=== PATIENT | female | born 1955 | race Hispanic/Latino ===

== ENCOUNTER 2017-03-19 08:08 | Inpatient (IN) | payer MEDICARE, MEDICAID ==
--- NOTE | 2017-03-19 08:48 | RAD ---
AP VIEW OF THE CHEST: INDICATION: Chest pain. COMPARISON: Prior exam dated 08/24/12. FINDINGS: There is mild cardiomegaly. Pulmonary vasculature is mildly prominent. The lungs are clear. No pl eural effusion or pneumothorax is evident. No acute osseous abnormality is evident. IMPRESSION: Cardiomegaly with mild pulmonary vascular congestion. POS: [facility]
[2017-03-19 08:57] LABS: #Basophils 0.1 thou/uL (0.0-0.2); #Eosinphils 0.4 thou/uL (0.0-0.7); #Lymphocytes 1.9 thou/uL (1.20-3.40); #Monocytes 0.5 thou/uL (0.11-0.59); #Neutrophils 3.8 thou/uL (1.40-6.50); %Basophils 0.8 % (0.0-1.0); %Eosinophils 5.9 % (0.0-10.0); %Lymphocytes 29.2 % (21.0-51.0); %Monocytes 6.9 % (0.0-10.0); Hematocrit 42.6 % (36.0-47.0); Mean Platelet Volume 8.7 fL (7.4-10.4); Red Blood Cell (RBC) Count 4.76 mill/uL (4.20-5.40); White Blood Cell (WBC) Count 6.6 thou/uL (4.8-10.8)
[2017-03-19 09:21] LABS: ALT (SGPT) 57 U/L (8-55); AST (SGOT) 62 U/L (5-34); Alkaline Phosphatase 73 U/L (40-150); Anion Gap 13 mmol/L (10-20); BUN (Urea Nitrogen) 22 mg/dL (9.8-20.1); Bilirubin, Total 0.4 mg/dL (0.2-1.2); CK (CPK) 1623 U/L (29-168); Calc. Creatinine Clearance 0 mL/min (70-130); Calcium 9.4 mg/dL (7.8-10.44); Carbon Dioxide 28 mmol/L (23-31); Chloride 106 mmol/L (98-107); Estimated GFR-MDRD Greater than 90; Globulin 3.4 g/dL (2.4-3.5); Lipase 14 U/L (8-78); Protein, Total 7.3 g/dL (6.0-8.3)
[2017-03-19 09:24] LABS: Troponin I Less than 0.010 ng/mL (< 0.028)
[2017-03-19 09:37] LABS: PTT 28.3 SEC (22.9-36.1); Prothrombin Time 13.7 SEC (12.0-14.7)
[2017-03-19] MEDS ORDERED: Ondansetron HCl/PF 4 MG/2 ML Vial ONE (12:06)
[2017-03-19] MEDS ORDERED: Acetaminophen 500 MG TAB ONE (12:06)
[2017-03-19 18:49] LABS: Bilirubin Negative (Negative); Blood, Urine Negative (Negative); Glucose, Urine (Dipstick) Negative (Negative); Ketone, Urine Negative (Negative); Nitrite Negative (Negative); Protein, Urine (Dipstick) Negative (Neg-Trace)
[2017-03-19 19:22] LABS: Troponin I Less than 0.010 ng/mL (< 0.028)
[2017-03-19] MEDS ORDERED: Ondansetron HCl/PF 4 MG/2 ML Vial IVP PRN (21:04)
[2017-03-19] MEDS ORDERED: Ondansetron ODT 4 MG TAB SL PRN (21:04)
[2017-03-19] MEDS ORDERED: Nitroglycerin 0.4 MG TAB (25 Tab Bottle) PO PRN (21:07)
[2017-03-19] MEDS ORDERED: Baclofen 10 MG TAB PO SCH (21:15)
[2017-03-19] MEDS ORDERED: Aspirin 325 MG TAB PO SCH (21:15)
[2017-03-19] MEDS ORDERED: Carvedilol 3.125 MG TAB PO SCH (21:15)
[2017-03-19] MEDS ORDERED: tiZANidine HCl 4 MG TAB PO SCH (21:30)
[2017-03-19 22:16] LABS: Troponin I Less than 0.010 ng/mL (< 0.028)
[2017-03-19 22:18] LABS: Critical Call CKMBM RESULT DECREASING
[2017-03-19] MEDS: Sodium Chloride 0.9% 1,000 ML IV SCH (22:56)
[2017-03-19 23:56] VITALS: BMI 43.3
[2017-03-20 00:01] LABS: Phosphorus 3.3 mg/dL (2.3-4.7)
[2017-03-20 01:11] LABS: Troponin I 0.012 ng/mL (< 0.028)
[2017-03-20] MEDS: Ondansetron ODT 4 MG TAB PO PRN ×3 (01:33→17:35)
[2017-03-20] MEDS: Ketorolac Tromethamine 10 MG TAB PO SCH ×4 (01:33→17:32)
[2017-03-20] MEDS: Acetaminophen 325 MG TAB PO PRN ×2 (04:43→10:12)
[2017-03-20 04:44] LABS: ALT (SGPT) 51 U/L (8-55); AST (SGOT) 59 U/L (5-34); Alkaline Phosphatase 58 U/L (40-150); Anion Gap 14 mmol/L (10-20); BUN (Urea Nitrogen) 13 mg/dL (9.8-20.1); Bilirubin, Total 0.4 mg/dL (0.2-1.2); CK (CPK) 1516 U/L (29-168); Calc. Creatinine Clearance 143 mL/min (70-130); Calcium 8.7 mg/dL (7.8-10.44); Carbon Dioxide 27 mmol/L (23-31); Chloride 104 mmol/L (98-107); Cholesterol 145 mg/dl (< 200 Desired); Estimated GFR-MDRD 86; Globulin 3.3 g/dL (2.4-3.5); LDL Cholesterol, Calculated 67 mg/dL; Protein, Total 6.9 g/dL (6.0-8.3)
--- NOTE | 2017-03-20 05:51 | HP-2 ---
CODE STATUS: FULL. PRIMARY CARE PHYSICIAN: Dr. Quevedo ATTENDING: Dr. Brenda Mancilla RESIDENT: João Thakkar M.D. HISTORIAN: Patient. CHIEF COMPLAINT: Chest pain. HISTORY OF PRESENT ILLNESS: Chantell Keith is a 62-year-old female with past medical history of hyper tension who presents with chest pain that started last night while she was asleep. The pain woke he r up from her sleep. The pain is located in the upper chest and around the left shoulder. There is no radiation to her neck or the left arm. The pain is described as sharp and was rated as 9/10 ini tially. The pain has been intermittent ever since. She states initially that nothing improves the pain or worsens the pain, she stated that initially, but later on the interview when asked specifica lly, she said the pain is worse with exertion. She states that when the pain woke her up yesterday night she had some dyspnea that she thought was due to her asthma. The patient denied orthopnea, PN D. Denies edema. She did that she had some nausea with the chest pain, but no diaphoresis. She al so states that she has had a cough for the last 2 weeks that has improved with Mucinex. PAST MEDICAL HISTORY: 1. Asthma. 2. Anxiety. 3. Hypertension. 4. Gastroesophageal reflux disease. 5. Overactive bladder. 6. Migraine. PAST SURGICAL HISTORY: 1. Ankle surgery. 2. Abdominal hernia surgery. 3. Cholecystectomy. ALLERGIES: SULFA DRUGS. MEDICATIONS: 1. Toradol 10 mg 2 tabs p.r.n. 2. Sertraline 100 mg p.o. a.m. 3. Aspirin 81 mg p.o. daily. 4. Pantoprazole 40 mg p.o. daily. 5. Tizanidine 4 mg p.o. at bedtime. 6. Myrbetriq 25 mg p.o. in the morning. 7. Baclofen 10 mg p.o. b.i.d. 8. Enalapril 20 mg p.o. b.i.d. 9. Butalbital/acetaminophen/caffeine 50-325-40 mg p.o. q.8 h. p.r.n. FAMILY HISTORY: Sister has a pacemaker. Father has hypertension, diabetes. Sisters have diabetes and hypertension as well. SOCIAL HISTORY: Denies alcohol, tobacco use or drug use. REVIEW OF SYSTEMS: GENERAL: Denies fevers, chills, weight, appetite, sleep change, night sweats, or fatigue. Positive for headache. EYES: Denies vision changes or eye pain. ENT: Denies sore throat, rhinorrhea and nasal congestion. RESPIRATORY: Positive for cough for the last 2 weeks. Denies congestion or exercise intolerance. Positive for shortness of breath. CARDIOVASCULAR: Positive for chest pain, palpitations. Denies edema, PND, orthopnea. GASTROINTESTINAL: Positive for nausea. Denies vomiting, diarrhea, constipation, abdominal pain, GI bleeding. : Positive for polyuria due to overactive bladder. Denies incontinence, dysuria, discharge. SKIN: Denies rashes, lesions, jaundice, or itching. MUSCULOSKELETAL: Denies pain, tenderness, stiffness, swelling or arthritis. NEURO: Denies weakness, numbness, syncope, seizures. PSYCHIATRIC: Positive for anxiety that is controlled with home medications. Denies depression. PHYSICAL EXAMINATION: VITAL SIGNS: Blood pressure 121/58, pulse 66, respiratory rate 18, T-max 98.1, pulse ox 95 on 2 lit ers. Current weight 101 kilograms. GENERAL: The patient is alert and oriented x4, no acute distress, obese, and appropriately interact josef. EYES: Pupils equal, round, react to light and accommodation. Extraocular muscles intact. Conjunct kiera within normal limits. ENT: Tympanic membranes are pearly pandya without bulging or erythema. Nasal mucosa within normal li mits and oropharynx within normal limits. NECK: Supple, without lymphadenopathy or thyromegaly. No JVD present. CARDIOVASCULAR: Regular rate and rhythm. No murmurs or gallops. Pulses equal bilaterally. RESPIRATORY: Normal effort without retractions. Lungs are clear to auscultation bilaterally, but l emilee sounds are distant possibly due to body habitus. SKIN: Warm and dry without cyanosis or lesions. ABDOMEN: Soft, nontender. Bowel sounds x4. No masses or distention. EXTREMITIES: No clubbing, cyanosis or edema. MUSCULOSKELETAL: Structure and tone within normal limit. Full range of motion. NEUROLOGICAL: No focal deficits. Sensation within normal limits. PSYCHIATRIC: Appropriate. LABORATORY DATA: White blood cell count 6.6, hemoglobin 13.1, hematocrit 42.6, platelets 189. Sodi um 141, potassium 4.0, chloride 106, bicarbonate 28, BUN 22, creatinine 0.64, glucose 109, calcium 9 .4, total protein 7.3, albumin 3.9, total bilirubin 0.4, AST 62, ALT 57, alkaline phosphatase 73. D -dimer 0.38, INR 1.0, PT 13.7, PTT 28.3. CK 1623, CK-MB 17.2, troponin less than 0.01, lipase 14. BNP 234.7. UA was negative. EKG showed normal sinus rhythm, heart rate of [address] s egment or T-wave changes. No axis deviation. Chest x-ray showed cardiomegaly with mild pulmonary v ascular congestion. ASSESSMENT AND PLAN: Chantell Keith is a 62-year-old female with past medical history of hypertension , migraines, gastroesophageal reflux disease, anxiety, who presents with chest pain. 1. Chest pain, rule out. Admit to tele observation, heart score of 3. Echo ordered. Trend cardia c enzymes with serial EKGs. IV fluids at 120. Negative troponin's x2 so far. CK-MB is elevated li chema secondary to elevated CK. We will recheck CK in the morning. Continuous cardiac monitoring. A.m. CBC, CMP, fasting lipid panel, CK. Beta niranjan and aspirin. Hold statin due to elevated CK. Check magnesium, phosphorus and TSH. 2. Elevated BNP. Check echocardiogram. Judicious fluid hydration while monitoring status. 3. Increased CK, unknown cause. Urine not concentrated. Check urine myoglobin. We will cautiousl y fluid hydrate and recheck. 4. Elevated fluid enzymes. We will obtain clinic records can likely be worked up outpatient. 5. CODE STATUS: Full. 6. Activity: Ad bea with fall precautions. 7. Diet; heart healthy. 8. Hypertension. Continue home medications. 9. Anxiety. Continue home meds negative. 10. Gastroesophageal reflux disease. Continue home medications. DISPOSITION/LENGTH OF HOSPITAL STAY: 2 days. Symptomatic medication will be provided. History and physical exam as well as management discussed with Dr. Brenda Mancilla.
[2017-03-20] MEDS ORDERED: Albuterol Sulfate 2.5 mg/3 ml Neb NEB PRN (05:56)
[2017-03-20] MEDS ORDERED: Albuterol Sulfate 2.5 mg/3 ml Neb NEB SCH (06:00)
[2017-03-20 06:20] LABS: Troponin I Less than 0.010 ng/mL (< 0.028)
[2017-03-20 06:41] LABS: #Eosinphils 0.4 thou/uL (0.0-0.7); #Lymphocytes 1.9 thou/uL (1.20-3.40); #Monocytes 0.6 thou/uL (0.11-0.59); #Neutrophils 4.2 thou/uL (1.40-6.50); %Basophils 0.1 % (0.0-1.0); %Eosinophils 5.3 % (0.0-10.0); %Lymphocytes 26.5 % (21.0-51.0); %Monocytes 7.9 % (0.0-10.0); Hematocrit 40.1 % (36.0-47.0); Mean Platelet Volume 8.9 fL (7.4-10.4); Red Blood Cell (RBC) Count 4.39 mill/uL (4.20-5.40)
[2017-03-20] MEDS ORDERED: Carvedilol 3.125 MG TAB PO SCH (09:00)
--- NOTE | 2017-03-20 09:09 | RAD ---
CHEST 1 VIEW: Date: 03/20/17 HISTORY: Dyspnea. COMPARISON: 03/19/17. FINDINGS: Cardiac silhouette remains magnified by projection and upper limits of normal in size. Pulmonary vas culature is less engorged than on the previous exam. Mediastinum is midline. No lobar consolidation or pneumothorax apparent. turf keeper leads overlie the chest. IMPRESSION: Interval decrease in degree of pulmonary vascular congestion. POS: OFF
--- NOTE | 2017-03-20 09:17 | PDOC.FM ---
- Subjective Subjective: Pt reports she has a little SOB, but that it is improved. Denies CP, NVD. Some constipation which she states is a chronic issue and her last BM was yesterday. She was given Coreg last night and has a history of asthma. Her pressures have dropped since recieving that medication and have remained low. She also reported increase sob after recieiving coreg which resolved with duonebs. - Objective Vital Signs & Weight: Vital Signs (12 hours) Temp Pulse Resp BP BP Pulse Ox 03/20/17 08:00 58 L 96/52 L 03/20/17 07:11 95 03/20/17 07:07 97.5 F L 61 20 82/47 L 98 03/20/17 07:06 86 16 95 03/20/17 06:00 88/50 L 03/20/17 05:32 65 20 85/43 L 96 03/20/17 04:00 99.6 F 72 18 95/57 L 94 L 03/20/17 00:30 98.3 F 67 16 03/19/17 23:48 98.3 F 67 16 133/58 L 97 Weight Weight 107.139 kg I&O: 03/19/17 03/20/17 03/21/17 06:59 06:59 06:59 Intake Total 822 Balance 822 Result Diagrams: 03/20/17 00:31 03/20/17 00:31 <Easton Marti - Last Filed: 03/20/17 09:21> - Objective Vital Signs & Weight: Vital Signs (12 hours) Temp Pulse Resp BP BP Pulse Ox 03/20/17 12:00 71 122/62 03/20/17 11:14 98.3 F 62 109/53 L 99 03/20/17 08:00 97.5 F L 58 L 16 96/52 L 03/20/17 07:11 95 03/20/17 07:07 97.5 F L 61 20 82/47 L 98 03/20/17 07:06 86 16 95 03/20/17 06:00 88/50 L 03/20/17 05:32 65 20 85/43 L 96 03/20/17 04:00 99.6 F 72 18 95/57 L 94 L 03/20/17 00:30 98.3 F 67 16 Weight Weight 107.139 kg I&O: 03/19/17 03/20/17 03/21/17 06:59 06:59 06:59 Intake Total 822 Balance 822 Result Diagrams: 03/20/17 00:31 03/20/17 00:31 <Berlin Pro - Last Filed: 03/20/17 12:26> Phys Exam - Physical Examination Constitutional: NAD HEENT: moist MMs Respiratory: no wheezing, no rales, no rhonchi, clear to auscultation bilateral Cardiovascular: RRR, no significant murmur, no rub Gastrointestinal: soft, non-tender, no distention, positive bowel sounds Musculoskeletal: no edema, pulses present Neurological: non-focal, normal sensation <Easton Marti - Last Filed: 03/20/17 09:21> Dx/Plan (1) Atypical chest pain Code(s): R07.89 - OTHER CHEST PAIN Status: Acute (2) Elevated brain natriuretic peptide (BNP) level Code(s): R79.89 - OTHER SPECIFIED ABNORMAL FINDINGS OF BLOOD CHEMISTRY Status : Acute (3) Elevated CK-MB level Code(s): R74.8 - ABNORMAL LEVELS OF OTHER SERUM ENZYMES Status: Acute (4) Elevated CK Status: Acute - Plan Plan: -troponins negative, tsh normal echo pending -ckmb elevated, but likely 2/2 elevated CK level -increasing sob with IVF alongside elevated BNP will hold IVF for now. -bp drop with use of coreg, will monitor pressures -cxr showed improved pulm vasc congestion check mag phos, elytes, replace as necessary <Easton Marti - Last Filed: 03/20/17 09:21> Attending Addendum - Attending Addendum I personally evaluated the patient and discussed the management with Dr. Marti. I agree with the History, Examination, Assessment and Plan documented above with any addition or exceptions noted below. MAGRARITO needs further work up outpatient and may need sleep aid. Chest pain is non- cardiac, likely costochondritis verses myositis. Will d/c home today after ECHO and f/u with Dr. Mosquera within 1 week of discharge. <Berlin Pro - Last Filed: 03/20/17 12:26>
[2017-03-20 09:38] LABS: Amphetamine Not Detected (NotDetected); Methadone Not Detected (NotDetected); Methamphetamine Not Detected (NotDetected)
[2017-03-20] MEDS: Baclofen 10 MG TAB PO SCH ×2 (11:12→21:08)
[2017-03-20] MEDS: Aspirin 325 MG TAB PO SCH (11:13)
[2017-03-20] MEDS: Sodium Chloride 0.9% 1,000 ML IV SCH ×2 (11:13→13:07)
[2017-03-20] MEDS: Enoxaparin Sodium 40 MG/0.4 ML SYRINGE SC SCH (11:14)
--- NOTE | 2017-03-20 15:30 | PDOC.EVN ---
Event Note - Event Note Event Note: Spoke with nurse, pt desating with walking and complains of dizziness. Pts orthostatics were negative and her oxygen saturation was 98% on 2LNC. O2 supplementation was turned off and pts saturation dropped to 88% and returned to 95% while sitting at bedside and conversing with pt. She had no signs of respiratory distress. Lungs were CTA BL. No paradoxical breathing and no retractions. She was given coreg and has a history of asthma, the previous low blood pressures and SOB are likely 2/2 medication side effect. She also complains of headache which has been extensively worked up in the outpatient setting and she has seen neurology for in the past. This is not an acute issue and she has no neurologic deficits. VBG ordered, DuonebsX1, incentive spirometry ordered and pt instructed to sit up in bed. Will re-evaluate following results of VBG.
[2017-03-20 15:56] LABS: Base Excess 4.7 mEq/L (0 (+/- 2.5)); O2 Content (venous) 7.8 VOL% (12.5-17.5); pH (venous) 7.303 (7.35-7.45)
[2017-03-20] MEDS ORDERED: Furosemide 20 MG/2 ML VIAL SLOW IVP SCH (17:30)
[2017-03-20] MEDS ORDERED: Ondansetron HCl/PF 4 MG/2 ML Vial IVP PRN ×2 (18:38→19:44)
[2017-03-20] MEDS ORDERED: Mag-Al 1200 mg/1200 mg/30 ML UDCUP PO PRN (19:44)
[2017-03-20] MEDS ORDERED: traMADol HCl 50 MG TAB PO PRN (19:44)
[2017-03-20] MEDS ORDERED: Bisacodyl 10 MG SUPP PR PRN (19:44)
[2017-03-20] MEDS ORDERED: Nitroglycerin 0.4 MG TAB (25 Tab Bottle) SL PRN (19:44)
[2017-03-20] MEDS ORDERED: Acetaminophen 325 MG TAB PO PRN (19:44)
[2017-03-20] MEDS ORDERED: Bisacodyl 5 MG TAB PO PRN (19:44)
[2017-03-20] MEDS ORDERED: diphenhydrAMINE HCl 25 MG CAP PO PRN (19:44)
[2017-03-20] MEDS ORDERED: Temazepam 15 MG CAP PO PRN (19:44)
[2017-03-20] MEDS ORDERED: Ondansetron HCl/PF 4 MG/2 ML Vial IVP SCH (19:45)
[2017-03-20] MEDS: Fioricet 325/50/40 mg Tablet PO PRN (19:56)
[2017-03-20] MEDS: tiZANidine HCl 4 MG TAB PO SCH (21:08)
[2017-03-21] MEDS: Ketorolac Tromethamine 10 MG TAB PO SCH ×4 (02:41→21:31)
[2017-03-21] MEDS ORDERED: Ondansetron HCl/PF 4 MG/2 ML Vial IVP SCH (03:45)
[2017-03-21 04:27] LABS: #Eosinphils 0.1 thou/uL (0.0-0.7); #Lymphocytes 1.4 thou/uL (1.20-3.40); #Monocytes 0.4 thou/uL (0.11-0.59); #Neutrophils 4.9 thou/uL (1.40-6.50); %Basophils 0.1 % (0.0-1.0); %Eosinophils 0.9 % (0.0-10.0); %Monocytes 5.8 % (0.0-10.0); Hematocrit 38.3 % (36.0-47.0); Mean Platelet Volume 8.8 fL (7.4-10.4); Red Blood Cell (RBC) Count 4.25 mill/uL (4.20-5.40); White Blood Cell (WBC) Count 6.8 thou/uL (4.8-10.8)
--- NOTE | 2017-03-21 07:13 | PDOC.FM ---
- Subjective Subjective: Patient reports several episodes of vomiting since yesterday afternoon. She denies abdominal pain or diarrhea, but has been having problems with constipation. She is currently on 2 L O2, but denies any SOB. She has not had any episodes of chest pain since admission. - Objective Vital Signs & Weight: Vital Signs (12 hours) Temp Pulse Resp BP BP Pulse Ox 03/21/17 03:35 99.8 F H 80 14 134/64 94 L 03/20/17 23:33 99.4 F 61 16 106/56 L 95 03/20/17 23:30 83 L 03/20/17 21:30 99.4 F 61 16 03/20/17 19:50 99.5 F 79 14 141/66 H 92 L Weight Weight 110.132 kg I&O: 03/20/17 03/21/17 03/22/17 06:59 06:59 06:59 Intake Total 822 480 Output Total 825 Balance 822 -345 Result Diagrams: 03/21/17 03:52 03/20/17 00:31 Phys Exam - Physical Examination Constitutional: NAD HEENT: moist MMs Respiratory: no wheezing, no rales, no rhonchi, clear to auscultation bilateral Cardiovascular: RRR, no significant murmur, no rub Gastrointestinal: soft, non-tender, no distention, positive bowel sounds Musculoskeletal: no edema, pulses present Neurological: non-focal, moves all 4 limbs Psychiatric: normal affect, A&O x 3 Dx/Plan (1) Acute respiratory failure with hypoxia Code(s): J96.01 - ACUTE RESPIRATORY FAILURE WITH HYPOXIA Status: Acute Plan: Patient is not on oxygen at home, but does have a history of asthma. Just prior to discharge she was walking and was found to have O2 of 86% and then later of 83%. Her O2 sats have improved with oxygen. She denies any SOB today. VBG showed pH 7.3 pCO2 67.7 pO2 26.5 HCO3 33 CXR showed pulmonary vascular congestion that has improved Echo showed EF 55-60%, technically difficult exam with limitations - diastolic function not well assessed. -hold IVF -s/p one dose of lasix -Will continue to monitor -duonebs and albuterol prn -Patient would benefit from outpatient sleep study to evaluate for MARGARITO. (2) Atypical chest pain Code(s): R07.89 - OTHER CHEST PAIN Status: Acute Plan: Patient had an episode of chest pain prior to admission, but has not had any further episodes. Trop negative x3 CK-MB elevated, but this is likely 2/2 CK elevation EKG with no ischemic changes -Tele monitoring (3) Elevated CK Status: Acute Plan: CK elevated, patient has family history of muscular dystrophy -hold statin -Check ADAMS -Check urine myoglobin (4) Elevated CK-MB level Code(s): R74.8 - ABNORMAL LEVELS OF OTHER SERUM ENZYMES Status: Acute Plan: likely 2/2 elevated CK Trops negative x3 (5) Elevated brain natriuretic peptide (BNP) level Code(s): R79.89 - OTHER SPECIFIED ABNORMAL FINDINGS OF BLOOD CHEMISTRY Status : Acute Plan: BNP 309 Echo was technically difficult, but EF shown to be 55-60% Patient could have element of diastolic dysfunction, but not assessed fully on echo s/p 1 dose of lasix CXR showed pulmonary vascular congestion -outpatient follow-up
[2017-03-21] MEDS ORDERED: Ondansetron ODT 8 MG TAB SL PRN (07:25)
[2017-03-21] MEDS ORDERED: Polyethylene Glycol 3350 17 GM Packet PO PRN (07:25)
[2017-03-21] MEDS: Promethazine HCl 25 MG in Sodium Chloride 0.9% 100 ML IVPB SCH ×3 (11:45→22:26)
[2017-03-21] MEDS: Promethazine HCl 25 MG/ML VIAL IM SCH ×3 (11:46→22:26)
[2017-03-21] MEDS: Enoxaparin Sodium 40 MG/0.4 ML SYRINGE SC SCH (15:20)
[2017-03-21] MEDS: Fioricet 325/50/40 mg Tablet PO PRN (15:42)
[2017-03-21 16:10] LABS: ALT (SGPT) 46 U/L (8-55); AST (SGOT) 45 U/L (5-34); Alkaline Phosphatase 55 U/L (40-150); Anion Gap 11 mmol/L (10-20); BUN (Urea Nitrogen) 14 mg/dL (9.8-20.1); Bilirubin, Total 0.4 mg/dL (0.2-1.2); CK (CPK) 1003 U/L (29-168); Calc. Creatinine Clearance 156 mL/min (70-130); Carbon Dioxide 34 mmol/L (23-31); Chloride 102 mmol/L (98-107); Estimated GFR-MDRD Greater than 90; Globulin 3.3 g/dL (2.4-3.5); Protein, Total 6.9 g/dL (6.0-8.3)
[2017-03-21] MEDS: Aspirin 325 MG TAB PO SCH (17:53)
[2017-03-21] MEDS: Baclofen 10 MG TAB PO SCH ×2 (17:53→21:31)
[2017-03-21] MEDS: tiZANidine HCl 4 MG TAB PO SCH (21:31)
--- NOTE | 2017-03-21 23:43 | ADD-PRG ---
ADDENDUM DATE OF SERVICE: 03/21/2017 Please see the report from Dr. Claire Ortiz for which I concur. The patient was seen and evaluated, examined and discussed with the residents. 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 Echo was fairly nonrema rkable, and definitely on discharged, we will need to get her set up for home sleep study as this is likely one of her biggest issues.
[2017-03-22] MEDS: Ketorolac Tromethamine 10 MG TAB PO SCH ×5 (00:41→16:55)
[2017-03-22] MEDS: Promethazine HCl 25 MG/ML VIAL IM SCH (05:32)
[2017-03-22 06:17] LABS: Anion Gap 10 mmol/L (10-20); BUN (Urea Nitrogen) 16 mg/dL (9.8-20.1); Calc. Creatinine Clearance 143 mL/min (70-130); Calcium 8.8 mg/dL (7.8-10.44); Carbon Dioxide 33 mmol/L (23-31); Chloride 103 mmol/L (98-107); Estimated GFR-MDRD 86
[2017-03-22] MEDS: Promethazine HCl 25 MG in Sodium Chloride 0.9% 100 ML IVPB SCH (06:35)
[2017-03-22] MEDS ORDERED: Promethazine HCl 25 MG/ML VIAL IM PRN (06:37)
[2017-03-22] MEDS ORDERED: Promethazine HCl 25 MG in Sodium Chloride 0.9% 100 ML IVPB PRN (06:38)
--- NOTE | 2017-03-22 07:36 | PDOC.FM ---
- Subjective Subjective: Patient reports that her nausea has improved significantly. She is still having the persistent migraine. She also reports some new muscle twitching in her upper body that she has never had before as well as some muscle pain in her left shoulder. She is still constipated and has not had a BM since . - Objective MAR Reviewed: Yes Vital Signs & Weight: Vital Signs (12 hours) Temp Pulse Resp BP BP Pulse Ox 03/22/17 03:59 98.4 F 54 L 16 118/65 97 03/21/17 23:15 98.9 F 65 16 137/80 93 L 03/21/17 21:10 99.6 F 66 12 03/21/17 19:47 99.6 F 66 12 131/84 94 L Weight Weight 107.229 kg I&O: 03/21/17 03/22/17 03/23/17 06:59 06:59 06:59 Intake Total 190 Output Total 125 Balance 65 Result Diagrams: 03/21/17 03:52 03/22/17 05:54 Phys Exam - Physical Examination Constitutional: NAD HEENT: moist MMs Respiratory: no wheezing, no rales, no rhonchi, clear to auscultation bilateral Cardiovascular: RRR, no significant murmur, no rub, gallop Gastrointestinal: soft, non-tender, no distention, positive bowel sounds Musculoskeletal: no edema, pulses present Neurological: non-focal, moves all 4 limbs Psychiatric: normal affect, A&O x 3 Skin: no rash Dx/Plan (1) Acute respiratory failure with hypoxia Code(s): J96.01 - ACUTE RESPIRATORY FAILURE WITH HYPOXIA Status: Acute Plan: Patient is not on oxygen at home, but does have a history of asthma. Just prior to discharge she was walking and was found to have O2 of 86% and then later of 83%. Her O2 sats have improved with oxygen. She denies any SOB today. VBG showed pH 7.3 pCO2 67.7 pO2 26.5 HCO3 33 CXR showed pulmonary vascular congestion that has improved Echo showed EF 55-60%, technically difficult exam with limitations - diastolic function not well assessed. -hold IVF -s/p one dose of lasix -Will continue to monitor -duonebs and albuterol prn -Patient would benefit from outpatient sleep study to evaluate for MARGARITO. -Patient will require home oxygen at least until she is able to get a sleep study done as she desats to the 80s on room air (2) Atypical chest pain Code(s): R07.89 - OTHER CHEST PAIN Status: Acute Plan: Patient had an episode of chest pain prior to admission, but has not had any further episodes. Trop negative x3 CK-MB elevated, but this is likely 2/2 CK elevation EKG with no ischemic changes -Tele monitoring (3) Rhabdomyolysis Code(s): M62.82 - RHABDOMYOLYSIS Status: Acute Qualifiers: Rhabdomyolysis type: non-traumatic Qualified Code(s): M62.82 - Rhabdomyolysis Plan: Patient had elevated CK likely 2/2 rhabdo, downtrending s/p fluid resuscitation -hold statin -treat nausea with zofran and phenergan (4) Elevated CK Status: Acute Plan: CK elevated, patient has family history of muscular dystrophy, this is likely 2/ 2 rhabdo CK is downtrending s/p some fluids - as patient likely has a diastolic CHF component, do not want to fluid overload her. She is now tolerating PO better. ADAMS negative -hold statin -Check urine myoglobin (5) Elevated CK-MB level Code(s): R74.8 - ABNORMAL LEVELS OF OTHER SERUM ENZYMES Status: Acute Plan: likely 2/2 elevated CK Trops negative x3 (6) Elevated brain natriuretic peptide (BNP) level Code(s): R79.89 - OTHER SPECIFIED ABNORMAL FINDINGS OF BLOOD CHEMISTRY Status : Acute Plan: BNP 309 Echo was technically difficult, but EF shown to be 55-60% Patient could have element of diastolic dysfunction, but not assessed fully on echo s/p 1 dose of lasix CXR showed pulmonary vascular congestion -outpatient follow-up (7) Migraine Code(s): G43.909 - MIGRAINE, UNSP, NOT INTRACTABLE, WITHOUT STATUS MIGRAINOSUS Status: Acute Qualifiers: Migraine type: unspecified Status migrainosus presence: without status migrainosus Intractability: intractable Qualified Code(s): G43.919 - Migraine, unspecified, intractable, without status migrainosus Plan: Patient has had a migraine since Thursday - s/p fioricet with no relief -Will try toradol and reglan today
[2017-03-22] MEDS ORDERED: Docusate 100 MG CAP PO SCH (09:00)
[2017-03-22] MEDS ORDERED: Metoclopramide HCl 10 MG TAB PO SCH (09:00)
[2017-03-22] MEDS ORDERED: Polyethylene Glycol 3350 17 GM Packet PO SCH (09:00)
[2017-03-22] MEDS ORDERED: Prochlorperazine Maleate 5 MG TAB PO PRN (09:27)
[2017-03-22] MEDS: Baclofen 10 MG TAB PO SCH (12:13)
[2017-03-22] MEDS: Aspirin 325 MG TAB PO SCH (12:13)
[2017-03-22] MEDS: Enoxaparin Sodium 40 MG/0.4 ML SYRINGE SC SCH (12:14)
[2017-03-22] MEDS: Ondansetron ODT 4 MG TAB PO PRN (12:24)
[2017-03-22 15:38] VITALS: BP 153/90; TEMP 98.4
--- NOTE | 2017-03-22 17:01 | ADD-PRG ---
ADDENDUM: 03/22/2017 Please see the note from Dr. Ortiz for which I concur. SUBJECTIVE: The patient is having less nausea and vomiting, started to develop a \\\\"twitching\\\\" in upper extremities. Really, there was none of that on exam in until she started talking about it an d then seemed to be voluntarily twitching, basically abducting her deltoids and arms in the room, an d from that point on to show how she is twitching. She is on Phenergan and Reglan and certainly thi s could be causing some kind of dystonic reaction. There seems to be a lot of somatization on her, a lot of just generalized complaints including headache, nausea, chronic migraines, chronic GI issue s, nauseous yesterday, but not vomiting. Oxygen levels have been borderline. She has chronically e levated CK, but that seems to be related more to issues with likely muscular dystrophy type issues, her MB ratio is certainly extremely large, troponin was okay. This sounds like she is possibly a li ttle bit of Pickwickian type issue where she has some chronic low oxygen from restrictive lung disea se, from obesity and body habitus which causes a little bit of volume overload on her, but is improv ing with the Lasix and should be able to be discharged home on her current medicines including Lasix , include a proton pump inhibitor and will make sure we get off of Phenergan and Reglan in case this is the dystonic reaction. At home, will definitely need outpatient sleep study as likely going to need BiPAP or CPAP at night to help her and definitely need to do anything and everything she can lo se weight, but should be able to be discharged today.
--- NOTE | 2017-03-23 14:15 | DIS-2 ---
DATE OF ADMISSION: 03/21/2017 DATE OF DISCHARGE: 03/22/2017 ADMITTING RESIDENT: João Thakkar M.D. DISCHARGE RESIDENT: Claire Ortiz M.D. ADMITTING ATTENDING: Brenda Mancilla M.D. DISCHARGE ATTENDING: Jimmie Sosa M.D. CONSULTATIONS: None. PROCEDURES: None. PRIMARY DIAGNOSES: 1. Atypical chest pain. 2. Acute on chronic respiratory failure with hypoxia. 3. Rhabdomyolysis. 4. Elevated CK. 5. Elevated CK-MB. 6. Elevated BNP. 7. Migraine. 8. Viral gastroenteritis. SECONDARY DIAGNOSES: 1. Gastroesophageal reflux disease. 2. Hypertension. 3. Asthma. 4. Anxiety. 5. Overactive bladder. DISCHARGE MEDICATIONS: 1. Aspirin 81 mg p.o. daily. 2. Baclofen 10 mg p.o. b.i.d. 3. Fioricet 1 tab p.o. q.8 hours p.r.n. migraine. 4. Enalapril 20 mg p.o. b.i.d. 5. Toradol 20 mg p.o. daily. 6. Myrbetriq 25 mg p.o. daily. 7. Zofran 8 mg sublingual b.i.d. 8. Protonix 40 mg p.o. daily. 9. Zoloft 100 mg p.o. daily. 10. Tizanidine 4 mg p.o. at bedtime. DISCONTINUED MEDICATIONS: None. HISTORY OF PRESENT ILLNESS AND HOSPITAL COURSE: This is a 62-year-old female who presented with an episode of sharp chest pain that woke her up from sleep that she initially thought was due to her asthma. She also states that she had a cough for the last 2 weeks and that has improved with Mucinex. The patient had a chest x-ray that showed cardiomegaly with mild pulmonary vascular congestion. Her D-dimer was normal. She had troponins that were normal, but CK -MB were elevated to 17.2 and then trended down. Her CK was elevated at 1623 and then trended down from there. Her CK was likely due to rhabdo and improved with fluids, and her CK-MB was likely elevated due to the CK elevation, not because of cardiac ischemia. She had a BNP of 309. She got an echo done that showed very poor visualization due to body habitus, shows a very technically limited study. Ejection fraction was estimated at 55%-60%, but nothing else was able to be assessed including diastolic function. The patient clinically appears to have diastolic dysfunction. The patient's chest pain had improved significantly by the time she was in the emergency room and the next day, the patient was ready to go, but she suddenly started developing a lot of nausea and vomiting and then she also had low oxygen saturation, so the patient had received some fluids due to the rhabdomyolysis, but she is suspected diastolic dysfunction, so she was carefully diuresed and was given DuoNeb to help with the hypoxia. She was treated with Zofran and then later Phenergan for the nausea which helped. The patient also reports that she had a migraine during this time. She has a history of migraine. She was given Fioricet as well as Toradol. The patient likely has Pickwickian syndrome due to her body habitus and her low oxygen saturation. The patient was hypoxic, but was not complaining of any shortness of breath or respiratory distress during any of these episodes. The patient also likely has obstructive sleep apnea and will need an outpatient sleep study. The patient was satting in the mid 80s on room air, but there was no cause identified after she was diuresed and her chest x- ray showed a decrease in the degree of pulmonary vascular congestion and there were no signs of infection in her lungs and her D-dimer was negative, so no signs of pulmonary embolism. This is likely chronic. We got a VBG that showed a pH 7.3, pCO2 67.6, pO2 26.5 and bicarbonate of 33. She is likely a chronic retainer, so the patient would definitely benefit from CPAP at home, but as we could not send her out on that, we sent her out with home oxygen with strict instructions to follow up within 1-2 days in her primary care physician's office to get evaluated with a sleep study, if at all possible to get home CPAP. DISPOSITION: Stable. DISCHARGE INSTRUCTIONS: 1. Location: Home. 2. Diet: Heart healthy. 3. Activity: As tolerated. 4. Follow up with [facility] within 1-3 days. RAMY
== END 2017-03-22 19:26 | disposition home or self-care (01) | DRG 189 ==
LOC: ERS 08:08 → 2SW 18:01 → OBSVTOIN 03-21 18:00
PROVIDERS: ADMIT Family Medicine; ATTEND Family Medicine
PROC: 5A09457 Assistance with Respiratory Ventilation, 24-96 Consecutive Hours, Continuous Positive Airway Pressure (ICD-10-PCS; principal; 2017-03-20)
DX: J96.21 Acute and chronic respiratory failure with hypoxia (principal); M62.82 Rhabdomyolysis; Z68.42 Body mass index [BMI] 45.0-49.9, adult; E87.70 Fluid overload, unspecified; E66.2 Morbid (severe) obesity with alveolar hypoventilation; I10 Essential (primary) hypertension; G43.909 Migraine, unspecified, not intractable, without status migrainosus; A08.4 Viral intestinal infection, unspecified; K21.9 Gastro-esophageal reflux disease without esophagitis; J45.909 Unspecified asthma, uncomplicated; N32.81 Overactive bladder; F41.9 Anxiety disorder, unspecified; G43.919 Migraine, unspecified, intractable, without status migrainosus; R74.8 Abnormal levels of other serum enzymes; R79.89 Other specified abnormal findings of blood chemistry; R07.89 Other chest pain; Z88.2 Allergy status to sulfonamides; Z83.3 Family history of diabetes mellitus; Z82.49 Family history of ischemic heart disease and other diseases of the circulatory system
CPT/HCPCS: 36415; 71010; 80048; 80053; 80061; 80306; 81003; 82550; 82553; 82805; 83690; 83735; 83874; 83880; 84100; 84443; 84484; 85025; 85379; 85610; 85652; 85730; 86038; 93005; 93010; 93306; 94640; 94660; 94760; 96374; A4216; J1650; J1940; J2405; J2550; J7050; J7611; Q0162

== ENCOUNTER 2017-05-22 10:43 | Inpatient (IN) | payer MEDICARE, OTHER ==
--- NOTE | 2017-05-22 11:07 | CT ---
CT HEAD WITHOUT IV CONTRAST: Date: 05/22/17 HISTORY: Patient woke up this morning with slurred speech and drooling. Weakness. COMPARISON: 11/18/16. FINDINGS: There is a low density focus seen in the left anterior frontal lobe montejo radiata, also seen on the prior study, which is nonspecific, probably reflective of chronic small vessel ischemic changes. Ther e is no evidence of an acute infarction, hemorrhage, mass effect, or midline shift. Ventricular syste m is normal in size, shape, and position. There has been no interval change compared to the prior ese dy. IMPRESSION: No acute intracranial abnormalities demonstrated. Above findings discussed with Dr. Fuller in the emergency department on 05/22/17 at 1056 hours. CODE CR. POS: [facility]
[2017-05-22 11:33] LABS: #Eosinphils 0.3 thou/uL (0.0-0.7); #Lymphocytes 2.2 thou/uL (1.20-3.40); #Monocytes 0.5 thou/uL (0.11-0.59); #Neutrophils 4.7 thou/uL (1.40-6.50); %Basophils 0.1 % (0.0-1.0); %Eosinophils 3.5 % (0.0-10.0); %Lymphocytes 28.9 % (21.0-51.0); %Monocytes 6.9 % (0.0-10.0); Mean Platelet Volume 8.9 fL (7.4-10.4); Red Blood Cell (RBC) Count 4.58 mill/uL (4.20-5.40); White Blood Cell (WBC) Count 7.7 thou/uL (4.8-10.8)
[2017-05-22 11:39] LABS: PTT 28.9 SEC (22.9-36.1); Prothrombin Time 13.5 SEC (12.0-14.7)
[2017-05-22] MEDS ORDERED: Nitroglycerin 2% Ointment 1 INCH/1 GM Packet ONE (11:52)
[2017-05-22 11:55] LABS: ALT (SGPT) 36 U/L (8-55); AST (SGOT) 39 U/L (5-34); Alkaline Phosphatase 109 U/L (40-150); Anion Gap 11 mmol/L (10-20); BUN (Urea Nitrogen) 23 mg/dL (9.8-20.1); Bilirubin, Total 0.3 mg/dL (0.2-1.2); Calc. Creatinine Clearance 0 mL/min (70-130); Calcium 9.6 mg/dL (7.8-10.44); Carbon Dioxide 28 mmol/L (23-31); Chloride 106 mmol/L (98-107); Estimated GFR-MDRD Greater than 90; Globulin 3.6 g/dL (2.4-3.5); Protein, Total 7.8 g/dL (6.0-8.3)
[2017-05-22 11:59] LABS: Troponin I 0.014 ng/mL (< 0.028)
--- NOTE | 2017-05-22 13:42 | CT ---
CT ANGIOGRAM OF THE HEAD CT ANGIOGRAM OF THE NECK CT PERFUSION OF THE HEAD: Date: 05/22/17 COMPARISON: None. HISTORY: Slurred speech. TECHNIQUE: Serial axial CT imaging at 1.25 mm intervals from the vertex through the lung apices with IV contrast using a CT angiogram protocol. Coronal and sagittal 3D reformatted imaging obtained. Then, CT perfus ion maps were obtained of the head. FINDINGS: CT ANGIOGRAM HEAD: Bilateral distal vertebral arteries are patent. Basilar artery and its branches are patent. Bilateral posterior cerebral arteries appear intact. Extracranial ICA distally is patent bilaterally. There is atherosclerotic calcification of the cavern ous carotid arteries bilaterally. The ICA bifurcation appears within normal limits bilaterally. The bilateral A1 segments are patent. T he A1 segment on the left is hypoplastic. Distal MOISES branches appear unremarkable. The M1 segment is patent bilaterally. The MCA bifurcation appears grossly unremarkable bilaterally. D istal MCA branches appear grossly unremarkable bilaterally. CT ANGIOGRAM OF NECK: Imaged lung apices appear grossly unremarkable. The origin of the innominate artery, right subclavian artery, right common carotid artery, left commo n carotid artery, and left subclavian artery appear unremarkable. The origin of the left vertebral artery is grossly unremarkable. The proximal left vertebral artery i s markedly tortuous. Left vertebral artery is otherwise grossly unremarkable. Origin of right vertebral artery appears unremarkable. Proximal right vertebral artery is tortuous. R ight vertebral artery is otherwise unremarkable. There is no hemodynamically significant stenosis involving the left or right common carotid artery. The right external and internal carotid arteries demonstrate no hemodynamically significant stenosis. There is tortuosity of the right internal carotid artery. There is a focal area of poor definition of the left internal carotid artery approximately 2-3 cm dis arron to its origin, best seen on coronal image 19 and axial image 115. There is some motion artifact i n this region. This could represent an area of hemodynamically significant stenosis involving the lef t internal carotid artery versus artifact. Follow-up repeat CT angiogram of the neck will be required for full assessment. The left internal carotid artery is otherwise unremarkable. There is a retropharyngeal course of the right internal carotid artery. Limited assessment of the aerodigestive tract demonstrates no discrete aerodigestive tract lesion. No lymphadenopathy is noted within the neck. The osseous structures demonstrate no worrisome lytic or blastic lesion. CT PERFUSION OF HEAD: Provided CT perfusion maps include axial cerebral blood flow, axial cerebral blood volume, and mean t ransit time. There is no focal area of abnormality identified on the CT perfusion maps. IMPRESSION: 1. Irregularity involving the proximal left internal carotid artery which may signify an area of hem odynamically significant stenosis. This is not optimally assessed on this examination and thus, follo w-up CT angiogram of the neck is suggested as a degree of this may be on the basis of motion artifact . 2. No evidence for intra-arterial thrombus is evident proximally on CT angiogram of the head. 3. Grossly unremarkable CT perfusion maps. 4. If there is continued concern for acute infarction, brain MRI is suggested. Results called to Dr. Fuller at approximately 1125 hours on 05/22/17. CODE CR. POS: [facility]
[2017-05-22 15:46] VITALS: BMI 43.1
[2017-05-22] MEDS ORDERED: Labetalol HCl 100 MG/20 ML VIAL SLOW IVP PRN (15:50)
[2017-05-22] MEDS ORDERED: hydrALAZINE 20 MG/ML VIAL SLOW IVP PRN (15:50)
[2017-05-22] MEDS ORDERED: ISOVUE-370 76%-LOCM 1 ML ONE (17:02)
--- NOTE | 2017-05-22 18:14 | RAD ---
CHEST TWO VIEW 05/22/17 HISTORY: Decreased breath sounds. COMPARISON: Chest one view, 03/20/17. FINDINGS: The lungs are without focal air space consolidation, pneumothorax or effusion. Mild pulmonary venous congestion. Heart size is upper limits of normal. IMPRESSION: Mild pulmonary venous congestion without evidence of consolidation. POS: [facility]
[2017-05-22 19:15] LABS: Critical Call CKMBM RESULT DECREASING; Troponin I 0.022 ng/mL (< 0.028)
[2017-05-22] MEDS: Atorvastatin Calcium 40 MG TAB PO SCH (20:48)
[2017-05-22] MEDS: Enoxaparin Sodium 100 MG/ML SYRINGE SC SCH (20:49)
--- NOTE | 2017-05-22 22:05 | PDOC.EVN ---
Event Note - Event Note Event Note: pt noted on telemetry monitoring to have HR up to 130s in AFib briefly. Had a few episodes of this approx 6 pm with the longest lasting 2 min. denied any palpitations or chest pain during episodes. currently in NSR. will start therapeutic lovenox with new onset paroxysmal AFib at this time. no need for rate controller at this time but will monitor closely overnight and start new rx if indicated.
[2017-05-22 22:41] LABS: Troponin I 0.018 ng/mL (< 0.028)
[2017-05-22 22:49] LABS: Critical Call CKMBM RESULT DECREASING
[2017-05-22] MEDS ORDERED: Benzonatate 100 MG CAP PO PRN (23:51)
[2017-05-23] MEDS: Acetaminophen 500 MG TAB PO PRN ×2 (00:15→10:40)
--- NOTE | 2017-05-23 01:39 | HP ---
DATE OF SERVICE: 05/22/2017 CHIEF COMPLAINT: Slurred speech. HISTORY OF PRESENT ILLNESS: The patient is a 62-year-old female with past medical history of hyperte nsion, GERD, asthma, and anxiety, who presented with slurred speech, increased drooling and elevated blood pressure for over the past week. The patient showed us her blood pressure logs, which showed s ystolics from the 180s to 270s. The patient does not notify anybody that her blood pressure was high . Today, she noticed increased dizziness, headache and difficulty speaking. In the ER, she had a CT of the brain, which showed no acute abnormalities, although CTA of the head and neck, which showed a possible proximal left ICA stenosis. Upon further questioning, the patient was also noted to have e levated CK and CK-MB. Troponin was normal. Upon further questioning, the patient noted that in the past week, she did have some pressure-like pain in the left upper chest that radiated down her left a rm. In the ER, she was given nitroglycerin and her blood pressure improved. She still notes intermi ttent facial numbness and difficulty with slurred speech. Otheriwse, she is feeling better from the 1st arrival at the ER. The patient will be set up for MRI. She will likely need a stress test durin g this hospitalization with the possible chest pain and elevated CK and CK-MB. Her cardiac enzymes w ill be trended. She continued on aspirin and statin as well as Lovenox. Neurology will be consulted . Medications for hypertension will be restarted that we were along for some permissive hypertension due to the possible CVA. Please see Dr. Quevedo's dictation. I have discussed the history and physical with him and repeated pertinent parts of the history and ph ysical exam myself. I agree with his documentation.
--- NOTE | 2017-05-23 01:46 | HP-2 ---
DATE OF ADMISSION: 05/22/2017 TIME: 1445. CODE STATUS: FULL. PRIMARY CARE PHYSICIAN: Dwaine Quevedo D.O. ATTENDING: Susy Mcguire M.D. RESIDENT: Dwaine Quevedo D.O. HISTORIAN: Patient. CHIEF COMPLAINT: Slurred speech. HISTORY OF PRESENT ILLNESS: A 62-year-old female who presented with chief complaint of slurred speech that at onset this morning when she woke up. She states that she initially noticed that she was drooling on the left side of her mouth while brushing her teeth. Her son then told her that she was slurring her speech. Patient then went and had breakfast with a friend who also noticing the fact that she was slurring her speech and she will likely seek help in the emergency room. At that point, she drove herself to the emergency room. The patient states that for the past week, she has been recording blood pressures at home in excess of 250 systolic with high in the mid 170 systolic. However, she did not report this to PCP or seek over the emergency room. In the emergency room, she had continued elevated blood pressures as high as 235/ 123 and was admitted for likely cerebrovascular accident. Upon further questioning, the patient states that although, she did not have chest pain. She had left arm pain at one point during the week that had since resolved. PAST MEDICAL HISTORY: Hypertension, chronic headache, GERD, asthma, major depressive with anxiety, mixed incontinence, presumed obstructive sleep apnea. PAST SURGICAL HISTORY: Hysterectomy, cholecystectomy, and abdominal hernia repair. ALLERGIES: SULFA. MEDICATIONS: Sertraline 100 mg daily, aspirin 81 mg daily, pantoprazole 40 mg daily, baclofen 10 mg b.i.d., enalapril 20 mg b.i.d., Fioricet p.r.n. for headache, hydrochlorothiazide 12.5 mg b.i.d., tizanidine 4 mg at bedtime, and Advair b.i.d. SOCIAL HISTORY: Tobacco none. Alcohol none. Drugs none. REVIEW OF SYSTEMS: Ten point review of systems was conducted and all responses are negative with the exception of weakness and numbness as noted above in the HPI. PHYSICAL EXAMINATION: VITAL SIGNS: Blood pressure maximum in the emergency room was 235/123, pulse 67 , respiratory rate 21, T-max 98, pulse ox 93% on room air, current weight 99.8 kilograms. GENERAL: Patient is alert and oriented, in no apparent distress. Patient is obese, appropriately interactive. HEENT: PERREREN, EOMI. NECK: Supple. CARDIOVASCULAR: Regular rate and rhythm without murmur. RESPIRATORY: Normal effort. Clear to auscultation bilaterally. SKIN: Warm and dry. ABDOMEN: Soft. Bowel sounds in all 4 quadrants, nontender. No mass or distention. EXTREMITIES: No clubbing or edema. MUSCULOSKELETAL: Strength is 5/5 in upper and lower extremities with full range of motion. NEUROLOGIC: Patient has slurred speech, which her tongue deviates to the left. She has decreased sensation on the right side of her face, not including her forehead. She does not have an appreciable facial droop; however, she is drooling from the left corner of her mouth, facial nerves appear to be grossly intact. LABORATORY DATA: CBC: Hemoglobin 12.7, hematocrit 40.0, white count 7.7, platelets 179, MCV 87.4, bands 60.7%. CMP: Sodium 121, potassium 3.9, chloride 106, bicarbonate 28, BUN 23, creatinine 0.64, glucose 98. Calcium 9.6 , total serum protein 7.8, albumin 4.2, total bilirubin 0.3, AST 39, ALT 36, alkaline phosphatase 109, PT is 13.5, INR is 1.0, PTT is 28.9. CK-MB is 15.3, troponins is 0.014. IMAGING: CT head is negative for acute abnormality. CT of neck possible left- sided ICA stenosis; however, a repeat study is recommended. There is no thrombosis and it appears that the perfusion is unremarkable. ASSESSMENT AND PLAN: 1. Cerebrovascular accident versus transient ischemic attack. Order an MRI in the morning. Repeat CTA neck. Admit to stroke with every 2 hours neuro checks , permissive hypertension. N.p.o. until swallow evaluation. Aspirin at 325, atorvastatin at 80. Start Lovenox and consult Neuro. 2. Urgent hypertension. Consider a report of 270 systolic. We will allow permissive hypertension up to 220 systolic and gradual lower to decrease risk of worsening a possible CVA. Consider workup for secondary hypertension. 3. Elevated CK-MB. Possible cardiac strain secondary to the hypertension. Order a CK to rule out scheduled etiology. We will trend the CK and CK-MB. Considering the chest pain earlier in the week, order an echo and consider stress test once the hypertension is under control. 4. Gastroesophageal reflux disease. Continue her home medications. 5. Major depressive. Continue her home medications. 6. Obesity. Counseled on weight loss. 7. Asthma. Patient is currently controlled. RAMY
[2017-05-23 04:46] LABS: #Basophils 0.1 thou/uL (0.0-0.2); #Eosinphils 0.3 thou/uL (0.0-0.7); #Lymphocytes 2.1 thou/uL (1.20-3.40); #Monocytes 0.5 thou/uL (0.11-0.59); #Neutrophils 3.9 thou/uL (1.40-6.50); %Basophils 0.7 % (0.0-1.0); %Eosinophils 4.4 % (0.0-10.0); %Lymphocytes 29.9 % (21.0-51.0); %Monocytes 7.4 % (0.0-10.0); Hematocrit 36.9 % (36.0-47.0); Mean Platelet Volume 8.6 fL (7.4-10.4); Red Blood Cell (RBC) Count 4.23 mill/uL (4.20-5.40); White Blood Cell (WBC) Count 6.9 thou/uL (4.8-10.8)
[2017-05-23 05:08] LABS: Anion Gap 10 mmol/L (10-20); BUN (Urea Nitrogen) 19 mg/dL (9.8-20.1); CK (CPK) 866 U/L (29-168); Calc. Creatinine Clearance 142 mL/min (70-130); Calcium 8.9 mg/dL (7.8-10.44); Carbon Dioxide 28 mmol/L (23-31); Chloride 105 mmol/L (98-107); Cholesterol 144 mg/dl (< 200 Desired); Estimated GFR-MDRD Greater than 90; LDL Cholesterol, Calculated 67 mg/dL
[2017-05-23] MEDS ORDERED: Enoxaparin Sodium 30 MG/0.3 ML SYRINGE SC SCH (09:00)
[2017-05-23] MEDS ORDERED: Lorazepam 2 MG/ML VIAL SLOW IVP PRN (09:48)
[2017-05-23] MEDS: Aspirin 325 mg Enteric Coated Tablet PO SCH (10:40)
[2017-05-23] MEDS: Enoxaparin Sodium 100 MG/ML SYRINGE SC SCH ×2 (10:41→20:51)
[2017-05-23] MEDS ORDERED: Ketorolac Tromethamine 30 MG/ML VIAL IVP SCH (11:15)
[2017-05-23] MEDS ORDERED: Metoclopramide HCl 10 MG/2 ML VIAL IVP SCH (11:15)
--- NOTE | 2017-05-23 12:41 | PDOC.FM ---
- Subjective Subjective: Anxious about the MRI and worried about her health. Pt denied chest pain or neurologic symptoms. - Objective Vital Signs & Weight: Vital Signs (12 hours) Temp Pulse Pulse Pulse Resp BP BP 05/23/17 11:10 98.9 F 77 16 05/23/17 10:40 138/77 05/23/17 09:05 61 71 140/63 05/23/17 08:15 98 F 60 16 05/23/17 07:20 98 F 60 16 05/23/17 03:17 97.6 F 65 16 BP BP Pulse Ox 05/23/17 11:10 152/95 H 95 05/23/17 10:40 05/23/17 09:05 169/78 H 05/23/17 08:15 98 05/23/17 07:20 138/77 98 05/23/17 03:17 134/76 100 Weight Weight 100.153 kg Result Diagrams: 05/23/17 04:21 05/23/17 04:21 <Michelle Ornelas - Last Filed: 05/23/17 12:39> - Objective Vital Signs & Weight: Vital Signs (12 hours) Temp Pulse Pulse Pulse Resp BP BP 05/23/17 15:15 98.1 F 58 L 18 05/23/17 11:10 98.9 F 77 16 05/23/17 10:40 138/77 05/23/17 09:05 61 71 140/63 05/23/17 08:15 98 F 60 16 05/23/17 07:20 98 F 60 16 BP BP Pulse Ox 05/23/17 15:15 104/59 L 95 05/23/17 11:10 152/95 H 95 05/23/17 10:40 05/23/17 09:05 169/78 H 05/23/17 08:15 98 05/23/17 07:20 138/77 98 Weight Weight 100.153 kg Result Diagrams: 05/23/17 04:21 05/23/17 04:21 <Susy Mcguire - Last Filed: 05/23/17 17:46> Phys Exam - Physical Examination Constitutional: NAD HEENT: PERRLA, moist MMs Respiratory: no wheezing, no rales, clear to auscultation bilateral Cardiovascular: RRR, no significant murmur Gastrointestinal: soft, non-tender, no distention, positive bowel sounds Musculoskeletal: no edema, pulses present tongue deviation to the left <Michelle Ornelas - Last Filed: 05/23/17 12:39> Dx/Plan (1) Focal neurological deficit, onset greater than 24 hours Code(s): R29.818 - OTHER SYMPTOMS AND SIGNS INVOLVING THE NERVOUS SYSTEM Status: Acute (2) Hypertensive emergency Code(s): I16.1 - HYPERTENSIVE EMERGENCY Status: Acute (3) Paroxysmal atrial fibrillation Code(s): I48.0 - PAROXYSMAL ATRIAL FIBRILLATION Status: Acute (4) MARGARITO (obstructive sleep apnea) Code(s): G47.33 - OBSTRUCTIVE SLEEP APNEA (ADULT) (PEDIATRIC) Status: Acute (5) GERD (gastroesophageal reflux disease) Code(s): K21.9 - GASTRO-ESOPHAGEAL REFLUX DISEASE WITHOUT ESOPHAGITIS Status: Acute (6) Anxiety Code(s): F41.9 - ANXIETY DISORDER, UNSPECIFIED Status: Acute (7) Elevated CK-MB level Code(s): R74.8 - ABNORMAL LEVELS OF OTHER SERUM ENZYMES Status: Acute (8) Migraine Code(s): G43.909 - MIGRAINE, UNSP, NOT INTRACTABLE, WITHOUT STATUS MIGRAINOSUS Status: Acute (9) Rhabdomyolysis Code(s): M62.82 - RHABDOMYOLYSIS Status: Acute - Plan Plan: 62 yo f presents with slurred speech admitted for a CVA rule out, found to have paroxysmal atrial fibrillation. 1.) CVA vs TIA: CTA head and neck with contrast showed severe stenosis of left side but report stated that a second CTA head and neck would be needed as first one was of poor quality MRI pending Echo pending Atorvastatin 80mg started Lipid profile pending Labetalol prn for bp >220/110 patient is on lovenox and aspirin Will follow up with neuro recs 2.)Hypertensive emergency: BP>180/110 with focal deficits of tongue deviation and elevated CKMB -No sign of intracranial bleeding on head CT 3.)pAF, new onset, single occurrence- Will monitor will consider bblocker if pt has additional runs of atrial fibrillation pt is on lovenox will consider cardiology consult if atrial fibrillation becomes persistent or evidence of RVR. Hasbled: 1.8% Chadsvasc: 4% 4.) Elevated CKMB, without chest pain, downtrending likely demand ischmia 5.)Elevated CK, downtrending Dispo: will follow-up with MRI, echo, and repeat CTA head and neck as well as neuro recs <Michelle Ornelas - Last Filed: 05/23/17 12:39> Attending Addendum - Attending Addendum I personally evaluated the patient and discussed the management with Dr. Ornelas. I agree with the History, Examination, Assessment and Plan documented above with any addition or exceptions noted below. The patient with paroxysmal a.fib overnight. She is on anticoagulation. Will have CTA neck today to further look at carotid arteries. The patient will also have MRI but will be pretreated with ativan. Pt had chest pain within the past week and has downtrending CK and CKMB. She will need stress test to further evaluate heart. <Susy Mcguire - Last Filed: 05/23/17 17:46>
--- NOTE | 2017-05-23 14:11 | CT ---
CT ANGIOGRAM NECK WITH IV CONTRAST AND 3D RECONSTRUCTIONS: DATE: 05/23/17. HISTORY: The patient woke up 1 day ago with slurred speech and drooling. FINDINGS: There is minimal calcified atherosclerotic plaque at the aortic arch. There is a normal arrangement of the great vessels at the aortic arch which are patent. The left subclavian artery is obscured due to dense contrast in the left subclavian vein. The right subclavian artery as well as innominate ar kvng and bilateral common carotid arteries are widely patent. The bilateral internal and external ca rotid arteries are widely patent. The internal carotid arteries deviate medially anterior to the lev el of the C3 vertebral. There is atherosclerotic plaque seen within the internal carotid arteries at the carotid siphons, but the internal carotid arteries in this region do appear patent, although the re is probably at least mild narrowing involving the left internal carotid artery at the carotid siph on. The visualized bilateral middle cerebral arteries are patent. The origin of the left vertebral artery is not well visualized, but the vertebral arteries are otherw ise widely patent and codominant bilaterally. The basilar artery as well as bilateral posterior cere bral arteries are patent. Minimal degenerative changes are seen in the cervical spine. IMPRESSION: 1. Patent bilateral internal carotid arteries. 2. Limited evaluation of the origin of the left vertebral artery due to artifact. Vertebral arterie s are otherwise patent. POS: [facility]
--- NOTE | 2017-05-23 14:58 | CON ---
DATE OF CONSULTATION: 05/23/2017 NEUROLOGY FOLLOWUP NOTE CONSULTING PHYSICIAN: [facility]. IMPRESSION: 1. Subjective complaints of facial asymmetry and drooling without much in the way of objective abnor malities. 2. Chronic headaches. 3. Hypertension. 4. Anxiety. PLAN: MRI of the brain to determine whether there has been an ischemic event. Ms. Keith is a 62-year-old female with history of hypertension, chronic headaches, asthma, d epression and anxiety who came in with complaints of feeling facial asymmetry and drooling. She also thought she was slurring of her speech. Her workup thus far has been negative including CT of the b rain, CTA of the carotids and tetlin of Sarmiento. The patient continues to report this slurred speech and facial asymmetry, although I do not appreciate anything on exam. We can proceed with MRI of the brain to determine whether there is any acute ischemic changes versus migraine and anxiety related symptoms.
--- NOTE | 2017-05-23 18:18 | MRI ---
MRI OF BRAIN 05/23/17 HISTORY: Patient woke up yesterday with slurred speech and drooling. COMPARISON: CT head on 05/22/17. FINDINGS: There is a linear and slight patchy area of restricted diffusion seen in a right parasylvian location in the right anterior frontal lobe in the distribution of right middle cerebral artery most consiste nt with an acute infarction. This was not seen on prior CT scan of the head. No additional areas of a cute infarction are seen. A few scattered punctate and patchy areas of FLAIR and increased T2 weighted signal intensity are see n in the periventricular and subcortical white matter which are nonspecific but likely reflective of mild chronic small vessel ischemic changes. Septum pellucidum and third ventricle are in the midline. There is no mass effect seen. Appropriate f low voids are demonstrated at the base of the brain. Ventricular system is normal in size, shape and position. The orbits, paranasal sinuses, and skull base have a normal MRI appearance. IMPRESSION: 1. 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 2. Mild chronic small vessel ischemic changes. POS: [facility]
[2017-05-23] MEDS: Atorvastatin Calcium 40 MG TAB PO SCH (20:50)
[2017-05-24 05:21] LABS: #Eosinphils 0.3 thou/uL (0.0-0.7); #Lymphocytes 1.7 thou/uL (1.20-3.40); #Monocytes 0.4 thou/uL (0.11-0.59); #Neutrophils 3.9 thou/uL (1.40-6.50); %Basophils 0.1 % (0.0-1.0); %Eosinophils 4.5 % (0.0-10.0); %Monocytes 6.8 % (0.0-10.0); Hematocrit 38.1 % (36.0-47.0); Mean Platelet Volume 8.7 fL (7.4-10.4); Red Blood Cell (RBC) Count 4.38 mill/uL (4.20-5.40); White Blood Cell (WBC) Count 6.3 thou/uL (4.8-10.8)
[2017-05-24 05:31] LABS: Anion Gap 8 mmol/L (10-20); BUN (Urea Nitrogen) 22 mg/dL (9.8-20.1); Calc. Creatinine Clearance 142 mL/min (70-130); Calcium 9.1 mg/dL (7.8-10.44); Carbon Dioxide 33 mmol/L (23-31); Chloride 104 mmol/L (98-107); Estimated GFR-MDRD Greater than 90
--- NOTE | 2017-05-24 06:31 | PDOC.FM ---
- Subjective Subjective: Pt denies chest pain, shortness of breath, numbness, weakness, or tingling. No acute events overnight. No episodes of afib since admission. - Objective Vital Signs & Weight: Vital Signs (12 hours) Temp Pulse Resp BP BP Pulse Ox 05/24/17 03:07 97.7 F 60 20 122/62 96 05/23/17 23:01 98.7 F 60 20 118/62 95 05/23/17 20:50 98.4 F 70 20 137/92 H 96 05/23/17 19:13 98.4 F 70 20 137/92 H 96 Weight Weight 100.153 kg Result Diagrams: 05/24/17 04:38 05/24/17 04:38 <Michelle Ornelas - Last Filed: 05/24/17 11:42> - Objective Vital Signs & Weight: Vital Signs (12 hours) Temp Pulse Resp BP BP Pulse Ox 05/24/17 11:10 98.1 F 63 18 124/77 91 L 05/24/17 08:57 122/83 05/24/17 08:00 98.4 F 66 18 99 05/24/17 07:10 98.4 F 66 18 122/83 99 05/24/17 03:07 97.7 F 60 20 122/62 96 Weight Weight 100.153 kg Result Diagrams: 05/24/17 04:38 05/24/17 04:38 <Susy Mcguire - Last Filed: 05/24/17 15:06> Phys Exam - Physical Examination Constitutional: NAD HEENT: PERRLA, moist MMs Respiratory: no wheezing, no rales, clear to auscultation bilateral Cardiovascular: RRR, no significant murmur, no rub Gastrointestinal: soft, non-tender, no distention, positive bowel sounds Musculoskeletal: no edema Neurological: moves all 4 limbs left facial droop and tongue deviation to left Psychiatric: normal affect, A&O x 3 <Michelle Ornelas - Last Filed: 05/24/17 11:42> Dx/Plan (1) Focal neurological deficit, onset greater than 24 hours Code(s): R29.818 - OTHER SYMPTOMS AND SIGNS INVOLVING THE NERVOUS SYSTEM Status: Acute (2) Hypertensive emergency Code(s): I16.1 - HYPERTENSIVE EMERGENCY Status: Acute (3) Paroxysmal atrial fibrillation Code(s): I48.0 - PAROXYSMAL ATRIAL FIBRILLATION Status: Acute (4) MARGARITO (obstructive sleep apnea) Code(s): G47.33 - OBSTRUCTIVE SLEEP APNEA (ADULT) (PEDIATRIC) Status: Acute (5) GERD (gastroesophageal reflux disease) Code(s): K21.9 - GASTRO-ESOPHAGEAL REFLUX DISEASE WITHOUT ESOPHAGITIS Status: Acute (6) Anxiety Code(s): F41.9 - ANXIETY DISORDER, UNSPECIFIED Status: Acute (7) Elevated CK-MB level Code(s): R74.8 - ABNORMAL LEVELS OF OTHER SERUM ENZYMES Status: Acute (8) Migraine Code(s): G43.909 - MIGRAINE, UNSP, NOT INTRACTABLE, WITHOUT STATUS MIGRAINOSUS Status: Acute (9) Rhabdomyolysis Code(s): M62.82 - RHABDOMYOLYSIS Status: Acute - Plan Plan: 62 yo f presents with slurred speech admitted for a CVA rule out, found to have paroxysmal atrial fibrillation, with new right MCA infarct found on MRI and patent bilateral internal carotids on repeat CTA head/neck, with concern for cardioembolic stroke. 1.) Acute infarct of right MCA second CTA head and neck: patent bilateral internal carotids MRI:new acute infarct of right MCA Echo completed: left atrial enlargement, normal EF Atorvastatin 80mg started Labetalol prn for bp >220/110 patient is on lovenox and aspirin Will follow up with neuro and cardio recs JUAN? 2.)Hypertensive emergency, still with evidence of end organ damage -CKMB 10 and CK 1500 -Stable neuro focal deficits of leftward tongue deviation and left facial droop -No sign of intracranial bleeding on head CT 3.)pAF, new onset, single occurrence- Will monitor will consider bblocker if pt has additional runs of atrial fibrillation pt is on lovenox Cards consulted for echo results of LAE and pAF, will follow recs. Hasbled: 1.8% Chadsvasc: 4% 4.) Elevated CKMB, without chest pain, downtrending likely demand ischmia 5.)Elevated CK, elevated -Started NS @ 150 ml/hr Dispo: will follow-up with MRI, echo, and repeat CTA head and neck as well as neuro and cardio recs <Michelle Ornleas - Last Filed: 05/24/17 11:42> Attending Addendum - Attending Addendum I personally evaluated the patient and discussed the management with Dr. Ornelas. I agree with the History, Examination, Assessment and Plan documented above with any addition or exceptions noted below. The patient's MRI did show a CVA. With the atrial fibrillation, patient may need a JUAN. Dr. Pisano will evaluate the patient and determine is JUAN is needed and if stress test should occur now or wait for a few weeks. <Susy Mcguire - Last Filed: 05/24/17 15:06>
[2017-05-24] MEDS: Enoxaparin Sodium 100 MG/ML SYRINGE SC SCH ×2 (08:57→20:04)
[2017-05-24] MEDS: Aspirin 325 mg Enteric Coated Tablet PO SCH (08:58)
[2017-05-24] MEDS: Sodium Chloride 0.9% 1,000 ML IV SCH ×2 (11:43→18:30)
--- NOTE | 2017-05-24 13:57 | CON ---
CARDIOLOGY CONSULTATION NOTE DATE OF CONSULTATION: 05/24/2017 REASON FOR CONSULTATION: Atrial fibrillation, RVR and CVA. HISTORY OF PRESENT ILLNESS: Ms. Keith is a very pleasant 60-year-old female who comes to [facility] for stroke-like symptoms. She had slurred speech and drooping of her mouth and drooling. She was admitted and during her hospitalization, it has been noted that she has had runs of paroxysm al atrial fibrillation self-limited. Heart rate in the 120s. She is asymptomatic during these episo chase. She had an MRI of the brain that showed a right MCA distribution stroke as well. Her symptoms are almost resolved and her slurred speech is gone and her left side of the mouth is much better. Lester kidd is not drooling anymore and she feels very close to normal. During admission, her initial blood pr essure was 235/123. She denies any chest pain, tightness or pressure. No shortness of breath. PAST MEDICAL HISTORY: 1. Hypertension. 2. Chronic migraine headaches. 3. Gastroesophageal reflux disease. 4. Bronchial asthma. 5. Major depressive disorder with anxiety. 6. Mixed incontinence. 7. Presumed obstructive sleep apnea, most likely. PAST SURGICAL HISTORY: 1. Hysterectomy. 2. Cholecystectomy. 3. Abdominal hernia repair. OUTPATIENT MEDICATIONS: Include; 1. Sertraline 100 mg a day. 2. Aspirin 81 mg a day. 3. Pantoprazole 20 mg a day. 4. Baclofen 10 mg b.i.d. 5. Enalapril 20 mg b.i.d. 6. Fioricet p.r.n. for headaches. 7. Hydrochlorothiazide 12.5 mg daily. 8. Tizanidine 4 mg at bedtime. 9. Advair p.r.n. ALLERGIES: SULFA DRUGS. SOCIAL HISTORY: No alcohol, tobacco or drugs. REVIEW OF SYSTEMS: Twelve-point review of systems was done and is all negative unless stated in the history of present illness. PHYSICAL EXAMINATION: VITAL SIGNS: Temperature 98.1, pulse 63, respiratory rate 18, satting 99% on 2 liters and blood pres sure 122/83. GENERAL: Awake, alert and oriented x3, in no distress. HEENT: Normocephalic and atraumatic. NECK: Supple. LUNGS: Clear. CARDIOVASCULAR: S1, S2, no S3 or S4, no murmurs or rubs. ABDOMEN: Soft, positive bowel sounds. EXTREMITIES: Trace edema. SKIN: Warm and dry. LABORATORY AND IMAGING DATA: Laboratory work was reviewed. CBC is unremarkable. Coags were unremar kable. Chemistry is unremarkable. CK-MB was 13, 12 and 10 but normal troponins. CK was also high a t 866 and 1511. Carbon dioxide of 33, anion gap of 8, BUN 22, creatinine 1.65, GFR was greater than 90. Triglycerides total was 118, total cholesterol 144, LDL of 67 and HDL of 53. EKG was reviewed, normal sinus rhythm. Telemetry was reviewed, episodes of paroxysmal atrial fibrillation self-limiting and asymptomatic. MRI of the brain showed right middle cerebral artery distribution stroke. ASSESSMENT: 1. Acute cerebrovascular accident. 2. Paroxysmal atrial fibrillation, new diagnosis. 3. Hypertension. 4. Morbid obesity. 5. Obstructive sleep apnea. PLAN: Agree with full anticoagulation. We will start Eliquis at 5 mg twice a day before discharge. Follow up in the office in 1 month with a CBC to make sure she is not having any bleeding complicati ons. Otherwise, I would start a beta-niranjan as well to try to minimize the amounts of atrial fibril lation and how fast the atrial fibrillation goes when she does come in today. Thank you for letting us to participate in the care of your patient. We will follow.
[2017-05-24] MEDS: Acetaminophen 500 MG TAB PO PRN (17:33)
[2017-05-24] MEDS: Metoprolol Tartrate 25 MG TAB PO SCH (20:03)
[2017-05-24] MEDS: Atorvastatin Calcium 40 MG TAB PO SCH (20:03)
[2017-05-24] MEDS ORDERED: Lorazepam 0.5 MG TAB PO PRN (23:58)
[2017-05-25] MEDS: Sodium Chloride 0.9% 1,000 ML IV SCH ×2 (00:14→06:22)
[2017-05-25 05:17] LABS: #Basophils 0.1 thou/uL (0.0-0.2); #Eosinphils 0.3 thou/uL (0.0-0.7); #Lymphocytes 1.5 thou/uL (1.20-3.40); #Monocytes 0.4 thou/uL (0.11-0.59); #Neutrophils 2.7 thou/uL (1.40-6.50); %Eosinophils 6.1 % (0.0-10.0); %Lymphocytes 30.5 % (21.0-51.0); %Monocytes 8.1 % (0.0-10.0); Hematocrit 36.4 % (36.0-47.0); Mean Platelet Volume 8.6 fL (7.4-10.4); Red Blood Cell (RBC) Count 4.18 mill/uL (4.20-5.40); White Blood Cell (WBC) Count 4.9 thou/uL (4.8-10.8)
[2017-05-25 05:40] LABS: Anion Gap 6 mmol/L (10-20); BUN (Urea Nitrogen) 11 mg/dL (9.8-20.1); Calc. Creatinine Clearance 162 mL/min (70-130); Calcium 8.5 mg/dL (7.8-10.44); Carbon Dioxide 31 mmol/L (23-31); Chloride 109 mmol/L (98-107); Estimated GFR-MDRD Greater than 90
[2017-05-25] MEDS: Acetaminophen 500 MG TAB PO PRN (06:22)
--- NOTE | 2017-05-25 07:20 | PDOC.CTH ---
Cardiology Progress Note - Subjective She is feeling anxious this morning. She is back in normal rhythm. No chest pain , tightness, pressure, SOB. - Objective Vital Signs Temp Pulse Resp BP BP Pulse Ox 05/25/17 03:11 98.3 F 62 20 132/78 98 05/24/17 23:06 98.5 F 75 20 134/89 97 05/24/17 20:03 98.1 F 70 18 161/72 H 93 L Weight 228 lb 9.6 oz 05/24/17 05/25/17 05/26/17 06:59 06:59 06:59 Intake Total 2123 Balance 2123 - Physical Examination General/Neuro: alert & oriented x3, NAD Neck: no JVD present Lungs: unlabored respirations Heart: RRR Abdomen: NT/ND Extremities: other: (no edema.) - Telemetry Telemetry Rhythm: NSR - Labs Result Diagrams: 05/25/17 04:52 05/25/17 04:52 Troponin/CKMB CK-MB (CK-2) 10.1 ng/mL (0-6.6) H* 05/24/17 04:38 Troponin I 0.018 ng/mL (< 0.028) 05/22/17 22:09 - Assessment/Plan 1. Acute Right MCA CVA 2. Paroxysmal afib 3. HTN PLAN: - Start Eliquis 5 mg BID before discharge. - Continue PT - Continue BB
[2017-05-25] MEDS: Enoxaparin Sodium 100 MG/ML SYRINGE SC SCH (10:15)
[2017-05-25] MEDS: Aspirin 325 mg Enteric Coated Tablet PO SCH (11:21)
[2017-05-25] MEDS: Metoprolol Tartrate 25 MG TAB PO SCH (11:22)
[2017-05-25 16:06] VITALS: BP 173/93; TEMP 98.3
--- NOTE | 2017-05-25 18:36 | PDOC.FM ---
- Subjective Subjective: Complains of anxiety overnight. Was given .5mg of ativan. Discussed follow-up with PCP if symptoms persist. - Objective Vital Signs & Weight: Vital Signs (12 hours) Temp Pulse Pulse Pulse Resp BP BP 05/25/17 16:06 98.3 F 65 20 05/25/17 11:31 98.5 F 73 20 05/25/17 11:21 187/106 H 05/25/17 08:08 62 62 135/77 05/25/17 08:00 99.1 F 61 20 05/25/17 07:44 99.1 F 61 20 BP BP Pulse Ox 05/25/17 16:06 173/93 H 92 L 05/25/17 11:31 187/106 H 96 05/25/17 11:21 05/25/17 08:08 152/86 H 05/25/17 08:00 92 L 05/25/17 07:44 163/92 H 92 L Weight Weight 103.691 kg I&O: 05/24/17 05/25/17 05/26/17 06:59 06:59 06:59 Intake Total 2123 Balance 2123 Result Diagrams: 05/25/17 04:52 05/25/17 04:52 <Michelle Ornelas - Last Filed: 05/25/17 18:32> - Objective Vital Signs & Weight: Weight Weight 103.691 kg I&O: 05/25/17 05/26/17 05/27/17 06:59 06:59 06:59 Intake Total 2123 Balance 2123 Result Diagrams: 05/25/17 04:52 05/25/17 04:52 <Tej Gil - Last Filed: 05/26/17 21:58> Phys Exam - Physical Examination Constitutional: NAD HEENT: PERRLA Respiratory: no wheezing, clear to auscultation bilateral Cardiovascular: RRR, no significant murmur Gastrointestinal: soft, non-tender, no distention Musculoskeletal: no edema left facial droop; left tongue deviation Psychiatric: normal affect, A&O x 3 <Michelle Ornelas - Last Filed: 05/25/17 18:32> Dx/Plan (1) Focal neurological deficit, onset greater than 24 hours Code(s): R29.818 - OTHER SYMPTOMS AND SIGNS INVOLVING THE NERVOUS SYSTEM Status: Acute (2) Hypertensive emergency Code(s): I16.1 - HYPERTENSIVE EMERGENCY Status: Resolved (3) Paroxysmal atrial fibrillation Code(s): I48.0 - PAROXYSMAL ATRIAL FIBRILLATION Status: Resolved (4) MARGARITO (obstructive sleep apnea) Code(s): G47.33 - OBSTRUCTIVE SLEEP APNEA (ADULT) (PEDIATRIC) Status: Chronic (5) GERD (gastroesophageal reflux disease) Code(s): K21.9 - GASTRO-ESOPHAGEAL REFLUX DISEASE WITHOUT ESOPHAGITIS Status: Chronic (6) Anxiety Code(s): F41.9 - ANXIETY DISORDER, UNSPECIFIED Status: Chronic (7) Elevated CK-MB level Code(s): R74.8 - ABNORMAL LEVELS OF OTHER SERUM ENZYMES Status: Acute (8) Rhabdomyolysis Code(s): M62.82 - RHABDOMYOLYSIS Status: Acute - Plan Plan: 62 yo f presents with slurred speech admitted for a CVA rule out, found to have paroxysmal atrial fibrillation, with new right MCA infarct found on MRI and patent bilateral internal carotids on repeat CTA head/neck, with concern for cardioembolic stroke. 1.) Acute infarct of right MCA second CTA head and neck: patent bilateral internal carotids MRI:new acute infarct of right MCA Echo completed: left atrial enlargement, normal EF Atorvastatin 80mg changed to rosuvastatin 20mg for lower side effect profile and can take generic form. Labetalol prn for bp >220/110 Lovenox and Aspirin dc'd; pt started on eliquis 5mg TID Pt also started on metoprolol 12.5 BID Appreciate cardiology recommendations possible asia at later time 2.)Hypertensive emergency, blood pressures controlled still with evidence of end organ damage CKMB 10 and CK 1500-->1000 -Stable neuro focal deficits of leftward tongue deviation and left facial droop -No sign of intracranial bleeding on head CT 3.)pAF, new onset, single occurrence- Will monitor will consider bblocker if pt has additional runs of atrial fibrillation pt is on lovenox Cards consulted for echo results of LAE and pAF, will follow recs. Hasbled: 1.8% Chadsvasc: 4% 4.) Elevated CKMB, without chest pain, downtrending likely demand ischmia cards recommends stress in outpatient setting 5.)Elevated CK, elevated, downtrending; started before statin was initiated -switched statin to rosuvastatin which has a lower side effect profile; pt can take generic form -Started NS @ 150 ml/hr -Family hx of Duchennes muscular dystrophy -follow up CK with PCP at clinic in 2-7 days Dispo: discharge pt today <Michelle Ornelas - Last Filed: 05/25/17 18:32> Attending Addendum - Attending Addendum I personally evaluated the patient and discussed the management with Dr. Donavan Larios I agree with the History, Examination, Assessment and Plan documented above with any addition or exceptions noted below. Notable tongue protrusion deviation to left. Minimal residual neuro findings otherwise. Lungs: CTA, Cor: RRR, no murmur. A: Improved. Stable for discharge per plan outlined above by Dr. Larios. P: D/C per discharge plan above. [facility] <Tej Gil - Last Filed: 05/26/17 21:58>
[2017-05-25] MEDS ORDERED: Apixaban 5 MG TAB PO SCH (21:00)
== END 2017-05-25 17:00 | disposition home or self-care (01) | DRG 65 ==
LOC: ERS 10:43 → 2SE 15:10
PROVIDERS: ADMIT Family Medicine; ATTEND Family Medicine
DX: I63.9 Cerebral infarction, unspecified (principal); M62.82 Rhabdomyolysis; Z68.41 Body mass index [BMI] 40.0-44.9, adult; I48.0 Paroxysmal atrial fibrillation; E66.01 Morbid (severe) obesity due to excess calories; I10 Essential (primary) hypertension; G43.909 Migraine, unspecified, not intractable, without status migrainosus; I16.1 Hypertensive emergency; R47.81 Slurred speech; R29.810 Facial weakness; F41.8 Other specified anxiety disorders; J45.909 Unspecified asthma, uncomplicated; K21.9 Gastro-esophageal reflux disease without esophagitis; I16.0 Hypertensive urgency; G47.33 Obstructive sleep apnea (adult) (pediatric); R29.818 Other symptoms and signs involving the nervous system; R74.8 Abnormal levels of other serum enzymes
CPT/HCPCS: 0042T; 36415; 70450; 70496; 70498; 70551; 71020; 80048; 80053; 80061; 82550; 82553; 84484; 85025; 85610; 85730; 93306; 94760; A4216; G8978-GP-CJ; G8979-GP-CJ; G8980-GP-CJ; G8987-GO-CI; G8988-GO-CI; G8989-GO-CI; G8996-GN-CK; G8997-GN-CI; J1650; J1885; J2060; J2765

== ENCOUNTER 2017-06-16 20:30 | Outpatient (CLI) | payer MEDICARE, MEDICAID | END 2017-06-16 20:31 | disposition home or self-care (01) | LOC: SLEEPLAB 20:30 | PROVIDERS: ATTEND Student in an Organized Health Care Education/Training Program | DX: G47.33 Obstructive sleep apnea (adult) (pediatric) (principal); E66.9 Obesity, unspecified; K21.9 Gastro-esophageal reflux disease without esophagitis; I10 Essential (primary) hypertension | CPT/HCPCS: 95811 ==

== ENCOUNTER 2017-11-02 09:31 | Outpatient (CLI) | payer MEDICARE, OTHER | END 2017-11-02 09:32 | disposition home or self-care (01) | LOC: BICMAMMO 09:31 | PROVIDERS: ATTEND Student in an Organized Health Care Education/Training Program | DX: Z12.31 Encounter for screening mammogram for malignant neoplasm of breast (principal); R92.1 Mammographic calcification found on diagnostic imaging of breast | CPT/HCPCS: 77063; 77067 ==

== ENCOUNTER 2018-01-11 08:31 | Outpatient (CLI) | payer MEDICARE, MEDICAID ==
[2018-01-11 10:23] LABS: Hemoglobin 12.1 g/dL (12.0-16.0); Mean Corpuscular HGB CONC 31.2 g/dL (32.0-36.0); Mean Corpuscular Hemoglobin 25.3 pg (27.0-31.0); Mean Platelet Volume 9.4 fL (7.4-10.4); Platelet Count 164 thou/uL (130-400); RBC Distribution Width 14.2 % (11.5-14.5); White Blood Cell (WBC) Count 6.1 thou/uL (4.8-10.8)
[2018-01-11 10:37] LABS: Prothrombin Time 13.6 SEC (12.0-14.7)
[2018-01-11 10:38] LABS: PTT 29.1 SEC (22.9-36.1)
[2018-01-11 10:43] LABS: ALT (SGPT) 32 U/L (8-55); AST (SGOT) 40 U/L (5-34); Albumin 4.1 g/dL (3.4-4.8); Alkaline Phosphatase 71 U/L (40-150); Anion Gap 10 mmol/L (10-20); BUN (Urea Nitrogen) 15 mg/dL (9.8-20.1); Bilirubin, Total 0.6 mg/dL (0.2-1.2); Calc. Creatinine Clearance 0 mL/min (70-130); Calcium 9.1 mg/dL (7.8-10.44); Carbon Dioxide 28 mmol/L (23-31); Cardiac Risk 2.7 (Less than 4.5); Chloride 106 mmol/L (98-107); Cholesterol 146 mg/dl (< 200 Desired); Estimated GFR-MDRD Greater than 90; Globulin 3.1 g/dL (2.4-3.5); Glucose 98 mg/dL (80-115); HDL Cholesterol 54 mg/dL (>60 Neg Risk); LDL Cholesterol, Calculated 72 mg/dL; Potassium 3.8 mmol/L (3.5-5.1); Protein, Total 7.2 g/dL (6.0-8.3); Sodium 140 mmol/L (136-145); Triglycerides 100 mg/dL (Less than 150)
== END 2018-01-11 08:32 | disposition home or self-care (01) ==
LOC: LABBT 08:31
PROVIDERS: ATTEND Internal Medicine Cardiovascular Disease
DX: Z01.818 Encounter for other preprocedural examination (principal); R94.39 Abnormal result of other cardiovascular function study
CPT/HCPCS: 80053; 80061; 85027; 85610; 85730; 93005; 93010

== ENCOUNTER 2018-01-13 05:46 | Day surgery (SDC) | payer MEDICARE, MEDICAID ==
[2018-01-11 08:54] VITALS: BMI 48.4
[2018-01-13] MEDS ORDERED: Lidocaine 1% (PF) 30 ML VIAL ONE (07:25)
[2018-01-13] MEDS ORDERED: Midazolam HCl 2 mg/2 ml Vial ONE (08:23)
[2018-01-13] MEDS ORDERED: Fentanyl 100 MCG/2 ML VIAL ONE (08:23)
[2018-01-13] MEDS ORDERED: Iopamidol 370 76% 100 ML VIAL ONE (11:14)
== END 2018-01-13 11:25 | disposition home or self-care (01) ==
LOC: CCL 05:46
PROVIDERS: ATTEND Internal Medicine Cardiovascular Disease
DX: I25.10 Atherosclerotic heart disease of native coronary artery without angina pectoris (principal); I10 Essential (primary) hypertension; F32.9 Major depressive disorder, single episode, unspecified; G43.909 Migraine, unspecified, not intractable, without status migrainosus; J45.909 Unspecified asthma, uncomplicated; G47.33 Obstructive sleep apnea (adult) (pediatric); I48.0 Paroxysmal atrial fibrillation; I63.9 Cerebral infarction, unspecified; Z79.899 Other long term (current) drug therapy; Z88.2 Allergy status to sulfonamides; Z79.01 Long term (current) use of anticoagulants
CPT/HCPCS: 76942; 93458; C1769; 99152; J1644; J2001; J2250; J3010

== ENCOUNTER 2018-03-04 07:36 | Outpatient (CLI) | payer MEDICARE, MEDICAID ==
--- NOTE | 2018-03-04 14:36 | NM ---
RADIONUCLIDE GASTRIC EMPTYING SCAN: History: Abdominal pain. Distension. FINDINGS: Anterior planar images show good mixing of the radiotracer. Half-life emptying is calculated at 68 minutes. 30 minute 30% empty. 1 hours 44% empty. 2 hours 87% empty. 3 hours 99% empty. IMPRESSION: Good gastric emptying. POS: [facility]
== END 2018-03-04 07:37 | disposition home or self-care (01) ==
LOC: NM 07:36
PROVIDERS: ATTEND Internal Medicine Gastroenterology
DX: R14.0 Abdominal distension (gaseous) (principal); R14.2 Eructation
CPT/HCPCS: 78264; A9541

== ENCOUNTER 2018-08-31 14:52 | Emergency (ER) | payer MEDICARE, OTHER ==
[~2018-08-31 14:52] MED LIST: ISOVUE-370 76%-LOCM 1 ML ONE
[2018-08-31 15:29] LABS: Bilirubin Negative (Negative); Blood, Urine Small (Negative); Clarity CLEAR (Clear); Glucose, Urine (Dipstick) Negative (Negative); Leukocyte Trace (Negative); Nitrite Negative (Negative); Protein, Urine (Dipstick) 100 mg/dL (Neg-Trace); Specific Gravity, Urine 1.014 (1.002-1.036); pH, Urine 6.5 (5.0-9.0)
[2018-08-31 15:31] LABS: Bacteria/HPF 1+ HPF (None Seen); Hyaline Casts/LPF 0-3 HYALINE CAST LPF (0-3 Hyaline); Pathc Cast-AUWi Flag 0.29 (0-2.49); Squamous Epithelial 0-3 HPF (0-3); WBC/HPF 21-50 HPF (0-3)
[2018-08-31 16:55] LABS: #Basophils 0.1 thou/uL (0.0-0.2); #Eosinphils 0.2 thou/uL (0.0-0.7); #Lymphocytes 1.9 thou/uL (1.20-3.40); #Monocytes 0.6 thou/uL (0.11-0.59); #Neutrophils 6.7 thou/uL (1.40-6.50); %Basophils 0.6 % (0.0-1.0); %Eosinophils 2.1 % (0.0-10.0); %Lymphocytes 20.3 % (21.0-51.0); %Monocytes 6.7 % (0.0-10.0); %Neutrophils 70.3 % (42.0-75.0); Hemoglobin 12.1 g/dL (12.0-16.0); Mean Corpuscular HGB CONC 30.5 g/dL (32.0-36.0); Mean Corpuscular Hemoglobin 23.9 pg (27.0-31.0); Mean Corpuscular Volume 78.3 fL (78.0-98.0); Mean Platelet Volume 9.6 fL (7.4-10.4); Platelet Count 251 thou/uL (130-400); RBC Distribution Width 14.8 % (11.5-14.5); Red Blood Cell (RBC) Count 5.09 mill/uL (4.20-5.40); White Blood Cell (WBC) Count 9.6 thou/uL (4.8-10.8)
[2018-08-31 17:07] LABS: ALT (SGPT) 28 U/L (8-55); AST (SGOT) 28 U/L (5-34); Albumin 4.2 g/dL (3.4-4.8); Alkaline Phosphatase 114 U/L (40-150); Anion Gap 12 mmol/L (10-20); BUN (Urea Nitrogen) 15 mg/dL (9.8-20.1); Bilirubin, Total 0.3 mg/dL (0.2-1.2); Calc. Creatinine Clearance 0 mL/min (70-130); Calcium 9.6 mg/dL (7.8-10.44); Carbon Dioxide 31 mmol/L (23-31); Chloride 104 mmol/L (98-107); Estimated GFR-MDRD 70; Globulin 3.9 g/dL (2.4-3.5); Glucose 108 mg/dL (80-115); Potassium 3.9 mmol/L (3.5-5.1); Protein, Total 8.1 g/dL (6.0-8.3); Sodium 143 mmol/L (136-145)
[2018-08-31] MEDS ORDERED: Ondansetron ODT 4 MG TAB ONE (17:21)
[2018-08-31] MEDS ORDERED: Ketorolac Tromethamine 30 MG/ML VIAL ONE (19:28)
--- NOTE | 2018-08-31 20:09 | CT ---
ABDOMEN CT WITH CONTRAST PELVIC CT WITH CONTRAST 08/31/18 HISTORY: Low abdominal pain x2 weeks. COMPARISON: None. FINDINGS: ABDOMEN CT: Lung bases are clear. Heart size is normal. No pericardial effusion. Visualized aorta has a normal ca liber. No periaortic fat stranding. Portal vein is patent. Gallbladder is surgically absent. Hypoattenuation of the liver due to a component of hepatic steatosis. No abnormal enhancing masses wi thin the liver. The spleen, pancreas, and adrenal glands have appropriate attenuation. Small hiatal hernia is noted. No gastrohepatic, retrocrural or periportal lymphadenopathy. Slightly d elayed enhancement of the left kidney. There is mild dilatation of the left intrarenal and extrarenal collecting system. There is left periureteral fat stranding. No evidence of a calcification along th e left ureter. Right intra and extrarenal collecting system is unremarkable. No mesenteric mass, lymphadenopathy, free air or free fluid. Limited evaluation of the alimentary canal by lack of oral contrast. No evidence of bowel obstruction . Ileocecal junction is normal. Appendix is not appreciated. No inflammation of the cecal apex. The v isualized colon is unremarkable. Diverticulosis in the sigmoid colon. No diverticulitis. Small amount of free fluid in the pelvis. No mass, lymphadenopathy or free air. Surgically absent uterus. CT PELVIS: Urinary bladder is unremarkable. No lytic or blastic lesions in the osseous structures. Pseudoarthrosis of the left L5 ala with the sacrum. IMPRESSION: 1. Mild left sided obstructive uropathy without associated obstructing calculus. Findings may be on the basis of a recently passed stone. Correlate with urinalysis. Nonemergent retrograde IVP and u rology consultation is recommended. POS: [facility]
== END 2018-08-31 22:15 | disposition home or self-care (01) ==
LOC: ERS 14:52
DX: N12 Tubulo-interstitial nephritis, not specified as acute or chronic (principal); Z86.73 Personal history of transient ischemic attack (TIA), and cerebral infarction without residual deficits; G43.909 Migraine, unspecified, not intractable, without status migrainosus; I10 Essential (primary) hypertension; J45.909 Unspecified asthma, uncomplicated; F41.9 Anxiety disorder, unspecified; Z79.899 Other long term (current) drug therapy; Z79.82 Long term (current) use of aspirin; Z79.51 Long term (current) use of inhaled steroids
CPT/HCPCS: 36415; 74177; 80053; 81003; 81015; 83690; 85025; 96374; J1885; Q0162; Q9966

== ENCOUNTER 2018-09-02 02:19 | Inpatient (IN) | payer MEDICARE, OTHER ==
[2018-09-02 03:08] LABS: Hemoglobin 10.8 g/dL (12.0-16.0); Mean Corpuscular HGB CONC 28.9 g/dL (32.0-36.0); Mean Corpuscular Hemoglobin 23.4 pg (27.0-31.0); Mean Corpuscular Volume 80.7 fL (78.0-98.0); Mean Platelet Volume 9.6 fL (7.4-10.4); Platelet Count 196 thou/uL (130-400); RBC Distribution Width 14.8 % (11.5-14.5); Red Blood Cell (RBC) Count 4.64 mill/uL (4.20-5.40); White Blood Cell (WBC) Count 8.7 thou/uL (4.8-10.8)
[2018-09-02 03:19] LABS: #Lymphocytes 1.5 thou/uL (1.20-3.40); #Monocytes 0.6 thou/uL (0.11-0.59); #Neutrophils 6.6 thou/uL (1.40-6.50); %Basophils 0.1 % (0.0-1.0); %Eosinophils 0.6 % (0.0-10.0); %Monocytes 6.5 % (0.0-10.0); %Neutrophils 75.9 % (42.0-75.0)
[2018-09-02] MEDS ORDERED: cefTRIAXone\\ROCEPHIN 2 GM VIAL ONE (03:20)
[2018-09-02 03:21] LABS: ALT (SGPT) 22 U/L (8-55); AST (SGOT) 26 U/L (5-34); Albumin 3.9 g/dL (3.4-4.8); Alkaline Phosphatase 65 U/L (40-150); Anion Gap 12 mmol/L (10-20); BUN (Urea Nitrogen) 12 mg/dL (9.8-20.1); Bilirubin, Total 0.6 mg/dL (0.2-1.2); Calc. Creatinine Clearance 0 mL/min (70-130); Calcium 8.8 mg/dL (7.8-10.44); Carbon Dioxide 29 mmol/L (23-31); Chloride 101 mmol/L (98-107); Estimated GFR-MDRD 87; Globulin 3.4 g/dL (2.4-3.5); Glucose 135 mg/dL (80-115); Potassium 3.7 mmol/L (3.5-5.1); Protein, Total 7.3 g/dL (6.0-8.3); Sodium 138 mmol/L (136-145)
[2018-09-02 03:46] LABS: Lactic Acid 0.9 mmol/L (0.5-2.2)
[2018-09-02] MEDS ORDERED: Acetaminophen 500 MG TAB ONE (03:48)
[2018-09-02] MEDS ORDERED: Azithromycin 500 MG VIAL ONE (03:48)
[2018-09-02] MEDS ORDERED: Ondansetron PF 4 MG/2 ML Vial ONE (03:52)
--- NOTE | 2018-09-02 04:11 | PDOC.FPRHP ---
- History of Present Illness Chief Complaint: nausea/vomiting History of Present Illness: 63yo F with pmh of afib presenting for 2 day hx of nausea and vomiting. Pt was seen in ED 2 days ago and was Dx with pyelonephritis and sent home with Keflex TID. Pt reports to have taken pills only once per day and did not improve. Pt has associated R flank pain and headache as well as fevers and chills. No dysuria. Pt also complains today of feeling SOB though she does not have cough and has had no sick contacts. ED Course: azithromycin, rocephin, duoneb, NS 1L - Allergies/Adverse Reactions Allergies Allergy/AdvReac Type Severity Reaction Status Date / Time Sulfa (Sulfonamide Allergy facial Verified 09/02/18 06:12 Antibiotics) swelling - Home Medications Medication Instructions Recorded Confirmed Type Enalapril Maleate 20 mg PO BID 03/19/17 09/02/18 History Pantoprazole [Protonix] 40 mg PO DAILY 03/19/17 09/02/18 History Sertraline HCl [Zoloft] 100 mg PO DAILY 03/19/17 09/02/18 History Fluticasone/Salmeterol [Advair HFA 1 inhaler INH PRN PRN 05/22/17 09/02/18 History 115/21 Inhaler] Metoprolol Tartrate [Lopressor] 12.5 mg PO BID #60 tab 05/25/17 09/02/18 Rx Montelukast Sodium 10 mg PO DAILY 01/13/18 09/02/18 History Apixaban [Eliquis] 5 mg PO BID 09/02/18 09/02/18 History Fluticasone/Salmeterol [Advair HFA 2 inh IH BID 09/02/18 09/02/18 History 115/21 Inhaler] - History PMHx:asthma, htn, afib PSHx: c section x2 FHx: DM Social: denies etoh/tobacco/drugs - Review of Systems General: reports: fever/chills. denies: fatigue Eyes: denies: eye pain, vision changes ENT: denies: nasal congestion, rhinorrhea Respiratory: reports: shortness of breath. denies: cough, congestion Cardiovascular: reports: chest pain (on deep inspiration). denies: palpitation Gastrointestinal: reports: nausea, vomiting Genitourinary: denies: incontinence, dysuria Skin: denies: rashes, lesions Musculoskeletal: reports: pain (R flank). denies: tenderness Neurological: denies: syncope, seizure Psychological: denies: anxiety, depression - Vital signs BP: [115/65] HR: [87] RR: [19] Tmax: [99.2] Pox: [94]% on [3L] Wt: [102kg] - Physical Exam Constitutional: awake, alert and oriented, other (mild distress) HEENT: EOMI, conjunctiva clear, grossly normal vision, grossly normal hearing Neck: supple, trachea midline Chest: no-tender to palpation Heart: RRR, normal S1/S2, other (grade 3/6 holosystolic murmur) Lungs: CTAB, no wheezing, no retractions Abdomen: soft, non-tender Musculoskeletal: normal structure, normal tone -Musculoskeletal: R flank TTP Neurological: no focal deficit, normal sensation Skin: no rash/lesions, good turgor Heme/Lymphatic: no purpura, no petechia Psychiatric: normal mood and affect, good judgment and insight FMR H&P: Results - Labs Result Diagrams: 09/02/18 02:44 09/02/18 02:44 Lab results: WBC 8.7 thou/uL (4.8-10.8) 09/02/18 02:44 Hgb 10.8 g/dL (12.0-16.0) L 09/02/18 02:44 Hct 37.4 % (36.0-47.0) 09/02/18 02:44 MCV 80.7 fL (78.0-98.0) 09/02/18 02:44 Plt Count 196 thou/uL (130-400) 09/02/18 02:44 Neutrophils % 75.9 % (42.0-75.0) H 09/02/18 02:44 Sodium 138 mmol/L (136-145) 09/02/18 02:44 Potassium 3.7 mmol/L (3.5-5.1) 09/02/18 02:44 Chloride 101 mmol/L (98-107) 09/02/18 02:44 Carbon Dioxide 29 mmol/L (23-31) 09/02/18 02:44 BUN 12 mg/dL (9.8-20.1) 09/02/18 02:44 Creatinine 0.68 mg/dL (0.6-1.1) 09/02/18 02:44 Glucose 135 mg/dL (80-115) H 09/02/18 02:44 Lactic Acid 0.9 mmol/L (0.5-2.2) 09/02/18 02:44 Calcium 8.8 mg/dL (7.8-10.44) 09/02/18 02:44 Total Bilirubin 0.6 mg/dL (0.2-1.2) 09/02/18 02:44 AST 26 U/L (5-34) 09/02/18 02:44 ALT 22 U/L (8-55) 09/02/18 02:44 Alkaline Phosphatase 65 U/L (40-150) 09/02/18 02:44 B-Natriuretic Peptide 302.5 pg/mL (0-100) H 09/02/18 02:44 Serum Total Protein 7.3 g/dL (6.0-8.3) 09/02/18 02:44 Albumin 3.9 g/dL (3.4-4.8) 09/02/18 02:44 FMR H&P: A/P - Problem List (1) CAP (community acquired pneumonia) Current Visit: Yes Status: Acute Code(s): J18.9 - PNEUMONIA, UNSPECIFIED ORGANISM (2) Pyelonephritis Current Visit: Yes Status: Acute Code(s): N12 - TUBULO-INTERSTITIAL NEPHRITIS, NOT SPCF ACUTE OR CHRONIC (3) Asthma Current Visit: Yes Status: Acute Code(s): J45.909 - UNSPECIFIED ASTHMA, UNCOMPLICATED (4) HTN (hypertension) Current Visit: Yes Status: Acute Code(s): I10 - ESSENTIAL (PRIMARY) HYPERTENSION (5) Acute respiratory failure with hypoxia Current Visit: No Status: Acute Code(s): J96.01 - ACUTE RESPIRATORY FAILURE WITH HYPOXIA - Plan Acute hypoxic respiratory distress 2/2 CAP A- Pt satting in 80s on RA in ED, CXR reviewed and generally unimpressive though there is a possible RLL infiltrate, exam is also unimpressive. Pt is volume down per hx of vomiting and decreased PO intake. Pt is s/p azithromycin and rocephin. BCx not collected before ABX initiated but order put in. P- continue rocephin and azithromycin - O2 prn keep sats above 90 - LR 150ml/hr - f/u BCx Pyelonephritis A- Pt has CVA tenderndes and has UA significant for UTI. P- Rocephin per plan above -f/u UCx Asthma A- no wheezing on exam, likely controlled P- will consider steroids if pt does not respond to abx - duonebs prn - home meds HTN - home meds afib - home meds DIET: HH FLUID: LR 150/hr CODE: DNAR FMR H&P: Upper Level - Pertinent history 63 yo HF PMH CVA, a-fib, HTN. Presents with 2 day history of nausea, vomiting, SOB, and right sided flank pain. Was seen in ER yesterday and diagnosed with mild pyelonephritis and started on keflex but only took 1 pill daily since discharge. No culture run on urine. Required oxygen in ER. ER: Labs, EKG, CXR - Pertinent findings Vitals: SpO2 86% on RA, increased to 94% on 2.5L, otherwise WNL GEN: NAD CV: RRR, 3/6 systolic murmur Pulm: CTA-B, Normal effort Abd: Right flank tenderness Labs: BNP 302 (baseline 300), Trop 0.017, UA WBC 21-50, Procal pending. EKG: NSR CXR: possible right sided infiltrate, - Plan Date/Time: 09/02/181 I, Arun Taylor MD, have evaluated this patient and agree with findings/plan as outlined by fashion [employer] internship resident. Pertinent changes/additions are listed here. 1. Acute hypoxic respiratory distress 2/2 CAP: Continue rocephin and azitho. procalcitonin pending at this time (0500). Consider adding steroids if oxygen requirement does not resolve. scheduled duonebs. Consider repeat PA and lateral view CXR to further evaluate for infiltrate. Flu swab pending. IV fluids. 2. Acute pyelonephritis: Did not technically fail outpatient antibiotics. Culture sent off urine today but urine from previous ER visit more concerning. Lab states that urine has been discarded at this time. Will empirically treat with rocephin and await culture results. If symptoms improve with rocephin, consider switching to omnicef. 3. elevated BNP: at baseline, monitor fluid intake and for signs of overload. 4. Chronic condition management per fashion buying internship note. 5. Diet: HH 6. PPx: Lovenox 7. CODE: DNAR Dispo: Obs, medical, <[address] Mcguire. Addendum - Attending - Attending Attestation Date/Time: 09/02/18 1014 I personally evaluated the patient and discussed the management with Dr. Richards I agree with the History, Examination, Assessment and Plan documented above with any addition or exceptions noted below- 63yo F with h/o afib, asthma and HTN presenting for 2 day h/o nausea and vomiting. Pt was seen in ED 2 days ago and was diagnosed with pyelonephritis and received rocephin in ER and prescription for Keflex TID. Pt reports to have taken pills only once per day and did not improve. Pt has associated R flank pain and headache as well as fevers and chills. Denies dysuria. Pt also complains today of feeling SOB though she does not have cough and has had no sick contacts. PMH/PSH/Meds/SH reviewed and agree with resident's documentation. Afebrile VSS Exam repeated by ma and agree with resident's findings. Labs: WBC=8.7, H/H=10.8/37.4, vmd=399 , Ok=799, K+3.7, ZP=905, CO2=29, BUN/Cr=12/0.68, procal=0.04, Lactic acid=0.9, U /A- tr prot/mod blood/21-50 WBC/bact none A/P: 1) Pyelonephritis- continue Rocephin; urine culture pending. 2) CAP - has new O2 reirement; continue nebs and abx.
[2018-09-02 04:16] LABS: Bilirubin Negative (Negative); Blood, Urine Moderate (Negative); Clarity CLEAR (Clear); Glucose, Urine (Dipstick) Negative (Negative); Leukocyte Small (Negative); Nitrite Negative (Negative); Protein, Urine (Dipstick) 30 mg/dL (Neg-Trace); Specific Gravity, Urine 1.018 (1.002-1.036); pH, Urine 6.5 (5.0-9.0)
[2018-09-02 04:20] LABS: Bacteria/HPF None Seen HPF (None Seen); Hyaline Casts/LPF 7-10 HYALINE CAST LPF (0-3 Hyaline); Pathc Cast-AUWi Flag 0.72 (0-2.49); WBC/HPF 21-50 HPF (0-3)
[2018-09-02 04:26] LABS: Renal Epithelial None Seen HPF (0-3); Transitional Epithelial NONE SEEN HPF (0-3)
[2018-09-02 05:13] LABS: Troponin I 0.013 ng/mL (< 0.028)
[2018-09-02 06:06] VITALS: BMI 38.5
[2018-09-02] MEDS: Lactated Ringer's 1,000 ML IV SCH ×3 (06:29→15:41)
[2018-09-02] MEDS: Mometasone/Formoterol 120 PUFF INHALER INH SCH ×2 (07:06→20:09)
--- NOTE | 2018-09-02 08:00 | RAD ---
CHEST 1 VIEW: INDICATION: 'Hypoxia with a history of kidney infection. COMPARISON: Prior exam dated 03/20/2017. FINDINGS: There is mild cardiomegaly with pulmonary vascular congestion. No pleural effusion or pneumothorax i s evident. No acute osseous abnormality is evident. IMPRESSION: Findings of mild congestive heart failure or volume overload. POS: [facility]
[2018-09-02] MEDS: Ondansetron PF 4 MG/2 ML Vial IVP PRN ×2 (09:17→15:44)
[2018-09-02 09:18] LABS: Troponin I 0.012 ng/mL (< 0.028)
[2018-09-02] MEDS: Metoprolol Tartrate 25 MG TAB PO SCH ×2 (09:20→20:05)
[2018-09-02] MEDS: Apixaban 5 MG TAB PO SCH ×2 (09:20→20:05)
[2018-09-02] MEDS: Acetaminophen 325 MG TAB PO PRN ×2 (13:15→18:21)
[2018-09-02] MEDS ORDERED: traMADol HCl 50 MG TAB PO SCH (20:15)
[2018-09-03] MEDS: Ondansetron PF 4 MG/2 ML Vial IVP PRN ×2 (00:51→06:46)
[2018-09-03] MEDS: Lactated Ringer's 1,000 ML IV SCH ×4 (00:59→22:49)
[2018-09-03] MEDS: Melatonin 3 MG TAB PO PRN (03:01)
[2018-09-03] MEDS ORDERED: cefTRIAXone\\ROCEPHIN 1 GM VIAL IVPB SCH (03:30)
[2018-09-03] MEDS: cefTRIAXone\\ROCEPHIN 2 GM in Sodium Chloride 0.9% 100 ML IVPB SCH (04:00)
[2018-09-03] MEDS: Azithromycin 250 MG in Sodium Chloride 0.9% 250 ML 250 ML IVPB SCH (05:59)
[2018-09-03 07:03] LABS: #Basophils 0.1 thou/uL (0.0-0.2); #Eosinphils 0.1 thou/uL (0.0-0.7); #Lymphocytes 1.2 thou/uL (1.20-3.40); #Monocytes 0.4 thou/uL (0.11-0.59); #Neutrophils 5.1 thou/uL (1.40-6.50); %Basophils 0.9 % (0.0-1.0); %Eosinophils 0.9 % (0.0-10.0); %Lymphocytes 17.4 % (21.0-51.0); %Monocytes 5.2 % (0.0-10.0); %Neutrophils 75.6 % (42.0-75.0); Hemoglobin 10.1 g/dL (12.0-16.0); Mean Corpuscular HGB CONC 29.9 g/dL (32.0-36.0); Mean Corpuscular Hemoglobin 24.2 pg (27.0-31.0); Mean Platelet Volume 9.4 fL (7.4-10.4); Platelet Count 179 thou/uL (130-400); RBC Distribution Width 14.6 % (11.5-14.5); Red Blood Cell (RBC) Count 4.17 mill/uL (4.20-5.40); White Blood Cell (WBC) Count 6.8 thou/uL (4.8-10.8)
[2018-09-03 07:05] LABS: Anion Gap 12 mmol/L (10-20); BUN (Urea Nitrogen) 12 mg/dL (9.8-20.1); Calc. Creatinine Clearance 162 mL/min (70-130); Calcium 8.5 mg/dL (7.8-10.44); Carbon Dioxide 30 mmol/L (23-31); Chloride 102 mmol/L (98-107); Estimated GFR-MDRD Greater than 90; Glucose 117 mg/dL (80-115); Potassium 4.1 mmol/L (3.5-5.1); Sodium 140 mmol/L (136-145)
[2018-09-03] MEDS: Mometasone/Formoterol 120 PUFF INHALER INH SCH ×2 (07:16→18:35)
--- NOTE | 2018-09-03 08:11 | PDOC.FM ---
- Subjective Subjective: Seen at bedside resting comfortably this morning. Over night pt had multiple episodes of n/v. She also complained of headache. This morning symptoms had somewhat improved. - Objective MAR Reviewed: Yes Vital Signs & Weight: Vital Signs (12 hours) Temp Pulse Resp BP Pulse Ox 09/03/18 07:57 98.5 F 74 18 101/61 96 09/03/18 07:19 72 16 97 09/03/18 07:16 72 16 97 09/03/18 04:00 98.1 F 87 18 111/66 92 L 09/03/18 02:54 16 09/03/18 00:00 99 F 80 18 130/82 93 L 09/02/18 22:48 74 16 Weight Admit Weight 105.188 kg Weight 105.188 kg I&O: 09/02/18 09/03/18 09/04/18 06:59 06:59 06:59 Intake Total 2650 350 Balance 2650 350 Result Diagrams: 09/03/18 06:37 09/03/18 06:37 Phys Exam - Physical Examination Constitutional: NAD HEENT: moist MMs Neck: no JVD Respiratory: clear to auscultation bilateral Cardiovascular: RRR, no significant murmur Gastrointestinal: soft, non-tender, no distention No CVA tenderness Musculoskeletal: no edema Neurological: moves all 4 limbs Psychiatric: A&O x 3 Skin: normal turgor Dx/Plan (1) Pyelonephritis Code(s): N12 - TUBULO-INTERSTITIAL NEPHRITIS, NOT SPCF ACUTE OR CHRONIC Status: Acute (2) CAP (community acquired pneumonia) Code(s): J18.9 - PNEUMONIA, UNSPECIFIED ORGANISM Status: Acute (3) HTN (hypertension) Code(s): I10 - ESSENTIAL (PRIMARY) HYPERTENSION Status: Chronic Qualifiers: Hypertension type: essential hypertension Qualified Code(s): I10 - Essential (primary) hypertension (4) Migraine Code(s): G43.909 - MIGRAINE, UNSP, NOT INTRACTABLE, WITHOUT STATUS MIGRAINOSUS Status: Chronic Qualifiers: (5) GERD (gastroesophageal reflux disease) Code(s): K21.9 - GASTRO-ESOPHAGEAL REFLUX DISEASE WITHOUT ESOPHAGITIS Status: Chronic (6) MARGARITO (obstructive sleep apnea) Code(s): G47.33 - OBSTRUCTIVE SLEEP APNEA (ADULT) (PEDIATRIC) Status: Chronic - Plan Plan: 1. Pyelonephritis - continue Rocephin - pt has no documented fever, but has had significant n/v. She has been able to maintain some food. Continue zofran as needed. - Will decrease IVF as she can keep down liquids 2. Migraine - contributing to n/v. Will treat as needed with phenergan and benadryl 3. CAP - continue azithromax for 5 days 4. HTN - home meds 5. GERD - home meds 6. A fib - home eliquis. RRR today 7. MARGARITO - CPAP at night Dispo: patient is stable and improving, like dc tomorrow. Addendum - Attending - Attending Attestation Date/Time: 09/03/18 2382 I personally evaluated the patient and discussed the management with Dr. Quevedo I agree with the History, Examination, Assessment and Plan documented above with any addition or exceptions noted below - Patient feeling better except for ABEL. Afebrile VSS A/P: 1) Pyelonephritis - continue current abx. CVAT improved. 2 ) CAP- still needing oxygen. Continue current abx/nebs. 3) Migraine - trial of fiorocet
[2018-09-03] MEDS: Apixaban 5 MG TAB PO SCH ×2 (08:50→20:12)
[2018-09-03] MEDS: Fioricet 325/50/40 mg Tablet PO PRN ×4 (08:50→22:46)
[2018-09-03] MEDS: Metoprolol Tartrate 25 MG TAB PO SCH ×2 (08:51→21:00)
[2018-09-03] MEDS: Ondansetron ODT 4 MG TAB PO PRN (20:12)
[2018-09-04] MEDS: Fioricet 325/50/40 mg Tablet PO PRN ×4 (04:18→23:33)
[2018-09-04] MEDS: cefTRIAXone\\ROCEPHIN 2 GM in Sodium Chloride 0.9% 100 ML IVPB SCH (04:22)
[2018-09-04] MEDS: Ondansetron PF 4 MG/2 ML Vial IVP PRN (04:25)
[2018-09-04] MEDS: Lactated Ringer's 1,000 ML IV SCH (06:47)
--- NOTE | 2018-09-04 06:48 | PDOC.FM ---
- Subjective Subjective: Reports she had chills and headache overnight resolved with benadryl and phenergan. Nausea is slightly relieved with Zofran. No vomiting. Ate dinner last night and good appetite this morning. Denies SOB with NC on. Walking to bathroom with no problems. Denies dysuria. - Objective MAR Reviewed: Yes Vital Signs & Weight: Vital Signs (12 hours) Temp Pulse Resp BP BP Pulse Ox 09/04/18 04:00 98.1 F 71 18 106/71 92 L 09/04/18 02:09 67 14 95 09/04/18 00:00 97.9 F 74 18 106/69 94 L 09/03/18 22:29 69 14 94 L 09/03/18 21:00 98/61 09/03/18 20:00 97.9 F 77 18 98/61 91 L Weight Admit Weight 105.188 kg Weight 105.188 kg I&O: 09/02/18 09/03/18 09/04/18 06:59 06:59 06:59 Intake Total 2650 2780 Balance 2650 2780 Result Diagrams: 09/04/18 07:53 09/04/18 07:53 Phys Exam - Physical Examination Constitutional: NAD HEENT: moist MMs Neck: supple Respiratory: clear to auscultation bilateral crackles present Cardiovascular: RRR, no significant murmur Gastrointestinal: soft, non-tender, positive bowel sounds No CVA tenderness Musculoskeletal: no edema Neurological: moves all 4 limbs Psychiatric: normal affect, A&O x 3 Skin: cap refill <2 seconds Dx/Plan (1) Pyelonephritis Code(s): N12 - TUBULO-INTERSTITIAL NEPHRITIS, NOT SPCF ACUTE OR CHRONIC Status: Acute (2) Asthma Code(s): J45.909 - UNSPECIFIED ASTHMA, UNCOMPLICATED Status: Chronic (3) HTN (hypertension) Code(s): I10 - ESSENTIAL (PRIMARY) HYPERTENSION Status: Chronic Qualifiers: Hypertension type: essential hypertension Qualified Code(s): I10 - Essential (primary) hypertension (4) Anxiety Code(s): F41.9 - ANXIETY DISORDER, UNSPECIFIED Status: Chronic (5) GERD (gastroesophageal reflux disease) Code(s): K21.9 - GASTRO-ESOPHAGEAL REFLUX DISEASE WITHOUT ESOPHAGITIS Status: Chronic (6) Migraine Code(s): G43.909 - MIGRAINE, UNSP, NOT INTRACTABLE, WITHOUT STATUS MIGRAINOSUS Status: Chronic Qualifiers: (7) MARGARITO (obstructive sleep apnea) Code(s): G47.33 - OBSTRUCTIVE SLEEP APNEA (ADULT) (PEDIATRIC) Status: Chronic (8) Paroxysmal atrial fibrillation Code(s): I48.0 - PAROXYSMAL ATRIAL FIBRILLATION Status: Chronic - Plan Plan: 63yo female admitted for Pyelonephritis and Acute hypoxic resp failure Pyelonephritis - UA: + LE, 21-50 WBCs. Initial CVA tenderness. - Continue Rocephin - LR @100 - No documented fever, but significant n/v. She has been able to maintain some food. Continue zofran PRN Acute hypoxic respiratory failure - Crackles on Exam - Initially 80% on RA. Currently 92% on 1L - Continue Azithromycin, day 2 - Procal 0.04 Migraine - Phenergan and Benadryl PRN Constipation - Miralax PRN CXR with possible volume overload - BNP 302 - Echo: moderate dilation RA. EF normal but limited study. HTN - Continue home meds GERD - Continue home meds Paroxysmal Afib on AC - NSR - Continue home Eliquis MARGARITO - CPAP at night Code Status: DNR DVT ppx: Eliquis PCP: KHALIL (P[facility])
[2018-09-04] MEDS: Mometasone/Formoterol 120 PUFF INHALER INH SCH ×2 (06:54→19:30)
[2018-09-04] MEDS: Azithromycin 250 MG in Sodium Chloride 0.9% 250 ML 250 ML IVPB SCH (07:47)
[2018-09-04 08:48] LABS: Anion Gap 8 mmol/L (10-20); BUN (Urea Nitrogen) 10 mg/dL (9.8-20.1); Calc. Creatinine Clearance 208 mL/min (70-130); Calcium 8.6 mg/dL (7.8-10.44); Carbon Dioxide 36 mmol/L (23-31); Chloride 101 mmol/L (98-107); Estimated GFR-MDRD Greater than 90; Glucose 130 mg/dL (80-115); Potassium 3.7 mmol/L (3.5-5.1); Sodium 141 mmol/L (136-145)
[2018-09-04] MEDS: Metoprolol Tartrate 25 MG TAB PO SCH ×2 (08:57→20:27)
[2018-09-04] MEDS: Apixaban 5 MG TAB PO SCH ×2 (08:57→20:27)
[2018-09-04 09:23] LABS: #Eosinphils 0.2 thou/uL (0.0-0.7); #Lymphocytes 1.1 thou/uL (1.20-3.40); #Monocytes 0.3 thou/uL (0.11-0.59); #Neutrophils 4.4 thou/uL (1.40-6.50); %Basophils 0.2 % (0.0-1.0); %Eosinophils 2.9 % (0.0-10.0); %Lymphocytes 17.7 % (21.0-51.0); %Monocytes 5.6 % (0.0-10.0); %Neutrophils 73.8 % (42.0-75.0); Hemoglobin 9.3 g/dL (12.0-16.0); Mean Corpuscular HGB CONC 29.1 g/dL (32.0-36.0); Mean Corpuscular Hemoglobin 23.1 pg (27.0-31.0); Mean Corpuscular Volume 79.3 fL (78.0-98.0); Mean Platelet Volume 9.2 fL (7.4-10.4); Platelet Count 144 thou/uL (130-400); RBC Distribution Width 14.7 % (11.5-14.5); Red Blood Cell (RBC) Count 4.03 mill/uL (4.20-5.40); White Blood Cell (WBC) Count 5.9 thou/uL (4.8-10.8)
[2018-09-04] MEDS ORDERED: Azithromycin 250 MG in Sodium Chloride 0.9% 250 ML 250 ML IVPB SCH (11:00)
[2018-09-04] MEDS: Melatonin 3 MG TAB PO PRN (20:33)
[2018-09-04] MEDS: Ondansetron ODT 4 MG TAB PO PRN (20:33)
[2018-09-05] MEDS: cefTRIAXone\\ROCEPHIN 2 GM in Sodium Chloride 0.9% 100 ML IVPB SCH (04:55)
[2018-09-05] MEDS: Ondansetron PF 4 MG/2 ML Vial IVP PRN ×2 (05:07→23:52)
--- NOTE | 2018-09-05 05:58 | PDOC.FM ---
- Subjective Subjective: No overnight events. Feeling better today. Reports getting up and sitting in the chair. She had a bowel movement yesterday after the Miralax. She is seeing if her sister would be able to bring in her CPAP. CPAP was ordered here but she has not been using it, this could be contributing to her hypoxia overnight. - Objective MAR Reviewed: Yes Vital Signs & Weight: Vital Signs (12 hours) Temp Pulse Resp BP BP Pulse Ox 09/05/18 04:00 98 09/05/18 00:00 98.2 F 68 20 99/53 L 95 09/04/18 23:50 98 09/04/18 20:26 117/72 09/04/18 20:00 98.6 F 83 18 117/72 117/72 93 L 09/04/18 19:31 97 09/04/18 19:30 98 Weight Admit Weight 105.188 kg Weight 105.188 kg I&O: 09/03/18 09/04/18 09/05/18 06:59 06:59 07:59 Intake Total 2650 2780 720 Balance 2650 2780 720 Result Diagrams: 09/04/18 07:53 09/04/18 07:53 Phys Exam - Physical Examination Constitutional: NAD HEENT: moist MMs Neck: supple crackles pressent Cardiovascular: RRR, no significant murmur Gastrointestinal: soft, non-tender, positive bowel sounds Musculoskeletal: no edema Neurological: moves all 4 limbs Psychiatric: normal affect, A&O x 3 Skin: cap refill <2 seconds Dx/Plan (1) Pyelonephritis Code(s): N12 - TUBULO-INTERSTITIAL NEPHRITIS, NOT SPCF ACUTE OR CHRONIC Status: Acute (2) Asthma Code(s): J45.909 - UNSPECIFIED ASTHMA, UNCOMPLICATED Status: Chronic (3) HTN (hypertension) Code(s): I10 - ESSENTIAL (PRIMARY) HYPERTENSION Status: Chronic Qualifiers: Hypertension type: essential hypertension Qualified Code(s): I10 - Essential (primary) hypertension (4) Anxiety Code(s): F41.9 - ANXIETY DISORDER, UNSPECIFIED Status: Chronic (5) GERD (gastroesophageal reflux disease) Code(s): K21.9 - GASTRO-ESOPHAGEAL REFLUX DISEASE WITHOUT ESOPHAGITIS Status: Chronic (6) Migraine Code(s): G43.909 - MIGRAINE, UNSP, NOT INTRACTABLE, WITHOUT STATUS MIGRAINOSUS Status: Chronic Qualifiers: (7) MARGARITO (obstructive sleep apnea) Code(s): G47.33 - OBSTRUCTIVE SLEEP APNEA (ADULT) (PEDIATRIC) Status: Chronic (8) Paroxysmal atrial fibrillation Code(s): I48.0 - PAROXYSMAL ATRIAL FIBRILLATION Status: Chronic - Plan Plan: 63yo female admitted for Pyelonephritis and Acute hypoxic resp failure Pyelonephritis - UA: + LE, 21-50 WBCs. Initial CVA tenderness. - Urine & Blood Cxs NGTD - Transition from Rocephin to Levaquin - LR @100 - Zofran PRN for nausea Acute hypoxic respiratory failure - Crackles on Exam - Initially 80% on RA. Currently 92% on 1L - Transition from Azithromycin to Levaquin - Procal 0.04 Migraine - Phenergan and Benadryl PRN Constipation - Miralax PRN CXR with possible volume overload - BNP 302 - Echo: moderate dilation RA. EF normal but limited study. HTN - Continue home meds GERD - Continue home meds Paroxysmal Afib on AC - NSR - Continue home Eliquis MARGARITO - CPAP at night Code Status: DNR DVT ppx: Eliquis PCP: KHALIL ([facility])
[2018-09-05] MEDS: Fioricet 325/50/40 mg Tablet PO PRN ×4 (06:35→21:28)
[2018-09-05] MEDS: Mometasone/Formoterol 120 PUFF INHALER INH SCH ×2 (06:39→18:50)
[2018-09-05] MEDS: Polyethylene Glycol 3350 17 GM Packet PO SCH (08:42)
[2018-09-05] MEDS: Metoprolol Tartrate 25 MG TAB PO SCH ×2 (08:43→20:06)
[2018-09-05] MEDS: Apixaban 5 MG TAB PO SCH ×2 (08:43→20:03)
[2018-09-05] MEDS ORDERED: Fioricet 325/50/40 mg Tablet PO SCH (16:30)
[2018-09-06] MEDS: Fioricet 325/50/40 mg Tablet PO PRN (05:05)
--- NOTE | 2018-09-06 06:18 | PDOC.FM ---
- Subjective Subjective: Reports bilateral periorbital edema, started overnight. Has also had return of flank pain. Reports the constant burping while conversating is chronic and has been worked up. Denies vision changes or pain. Denies edema anywhere else. Has using warm compresses on eyes. - Objective MAR Reviewed: Yes Vital Signs & Weight: Vital Signs (12 hours) Temp Pulse Resp BP BP Pulse Ox 09/06/18 04:55 98.5 F 71 14 95/48 L 91 L 09/06/18 02:42 94 L 09/06/18 00:22 98.3 F 73 18 90/61 92 L 09/05/18 23:03 94 L 09/05/18 21:40 94 L 09/05/18 20:03 123/76 09/05/18 20:00 98.3 F 79 12 117/73 91 L 09/05/18 18:52 92 L 09/05/18 18:50 94 L Weight Admit Weight 105.188 kg Weight 105.188 kg I&O: 09/04/18 09/05/18 09/06/18 05:59 06:59 06:59 Intake Total 1720 Balance 1720 Result Diagrams: 09/04/18 07:53 09/04/18 07:53 Phys Exam - Physical Examination Constitutional: NAD HEENT: moist MMs supra and infraorbital swelling right eye. Infraorbital swelling left eye Neck: supple Respiratory: no wheezing, clear to auscultation bilateral Cardiovascular: RRR, no significant murmur Gastrointestinal: soft, non-tender, positive bowel sounds Musculoskeletal: no edema Neurological: moves all 4 limbs Psychiatric: normal affect, A&O x 3 Skin: cap refill <2 seconds Dx/Plan (1) Pyelonephritis Code(s): N12 - TUBULO-INTERSTITIAL NEPHRITIS, NOT SPCF ACUTE OR CHRONIC Status: Acute (2) Asthma Code(s): J45.909 - UNSPECIFIED ASTHMA, UNCOMPLICATED Status: Chronic (3) HTN (hypertension) Code(s): I10 - ESSENTIAL (PRIMARY) HYPERTENSION Status: Chronic Qualifiers: Hypertension type: essential hypertension Qualified Code(s): I10 - Essential (primary) hypertension (4) Anxiety Code(s): F41.9 - ANXIETY DISORDER, UNSPECIFIED Status: Chronic (5) GERD (gastroesophageal reflux disease) Code(s): K21.9 - GASTRO-ESOPHAGEAL REFLUX DISEASE WITHOUT ESOPHAGITIS Status: Chronic (6) Migraine Code(s): G43.909 - MIGRAINE, UNSP, NOT INTRACTABLE, WITHOUT STATUS MIGRAINOSUS Status: Chronic Qualifiers: (7) MARGARITO (obstructive sleep apnea) Code(s): G47.33 - OBSTRUCTIVE SLEEP APNEA (ADULT) (PEDIATRIC) Status: Chronic (8) Paroxysmal atrial fibrillation Code(s): I48.0 - PAROXYSMAL ATRIAL FIBRILLATION Status: Chronic - Plan Plan: 63yo female admitted for Pyelonephritis and Acute hypoxic resp failure Pyelonephritis - UA: + LE, 21-50 WBCs. Initial CVA tenderness. - Urine & Blood Cxs NGTD - Continue Levaquin - Zofran PRN for nausea - Repeat UA and renal US for return of severe flank pain and periorbital edema. Although it does appear dependent on exam Acute hypoxic respiratory failure - Likely 2/2 CAP - Continue Levaquin Migraine - Phenergan and Benadryl PRN Constipation - Miralax PRN CXR with possible volume overload - BNP 302 - Echo: moderate dilation RA. EF normal but limited study. HTN - Continue home meds - Will switch DAHIANA-I to losartan due to periorbital edema GERD - Continue home meds Paroxysmal Afib on AC - NSR - Continue home Eliquis MARGARITO - CPAP at night Code Status: DNR DVT ppx: Eliquis PCP: KHALIL (P[facility]ino)
[2018-09-06] MEDS: Mometasone/Formoterol 120 PUFF INHALER INH SCH ×2 (08:02→18:33)
[2018-09-06] MEDS: Polyethylene Glycol 3350 17 GM Packet PO SCH (08:09)
[2018-09-06] MEDS: Metoprolol Tartrate 25 MG TAB PO SCH ×2 (08:09→20:38)
[2018-09-06] MEDS: Apixaban 5 MG TAB PO SCH ×2 (08:10→20:34)
[2018-09-06 09:32] LABS: Bilirubin Negative (Negative); Blood, Urine Negative (Negative); Clarity CLEAR (Clear); Glucose, Urine (Dipstick) Negative (Negative); Leukocyte Negative (Negative); Nitrite Negative (Negative); Protein, Urine (Dipstick) Negative (Neg-Trace); Specific Gravity, Urine 1.004 (1.002-1.036); Urobilinogen 0.2 mg/dL (0.2-1.0); pH, Urine 7.5 (5.0-9.0)
[2018-09-06 09:35] LABS: Bacteria/HPF None Seen HPF (None Seen); Hyaline Casts/LPF 0-3 HYALINE CAST LPF (0-3 Hyaline); Pathc Cast-AUWi Flag 0.67 (0-2.49); RBC/HPF None Seen HPF (0-3); Squamous Epithelial 0-3 HPF (0-3); WBC/HPF None Seen HPF (0-3)
[2018-09-06 09:36] LABS: Urine Culture Reflex No No
--- NOTE | 2018-09-06 11:08 | PRG ---
DATE OF SERVICE: 09/05/2018 ADDENDUM: Please see the note done by Dr. Frey for which I agree. The patient is slowly improving from a community-acquired pneumonia and pyelonephritis standpoint, going to switch her to Levaquin. It sounds like she is now wearing a CPAP at night, which does can decrease her respiratory status during the day. We will order CPAP. We need to get hers from home and see if the respiratory therapist are able to set it up here. She is still coughing, wheezing, still desaturating some and so not ready to go home yet, but hopefully that is something that can happen fairly soon. Otherwise on exam, just coarse breath sounds. No other major changes. So we will continue same management and again hopefully be able to be discharged in the next couple of days. Job ID: [id number]
--- NOTE | 2018-09-06 11:13 | ULT ---
BILATERAL RENAL ULTRASOUND: Date: 09/06/18 HISTORY: Bilateral flank pain. FINDINGS: Both kidneys measure approximately 10.0 cm in length. No evidence of hydronephrosis. Both kidneys are poorly imaged. No mass or cystic lesion seen. Cortical thickness and cortical echogenicity appears p reserved. Urinary bladder is imaged and only mildly distended, and appears unremarkable. IMPRESSION: Unremarkable renal ultrasound. POS: [facility]
--- NOTE | 2018-09-06 11:14 | PRG ---
DATE OF SERVICE: 09/04/2018 ADDENDUM: Please see the note from Dr. Klaudia Frey, which I agree. The patient was seen, evaluated, and discussed with the residents by bedside. This is a 63-year-old patient, who is here for pyelonephritis and intervening nausea, vomiting and headache and it sounds like which she describes more of a migraine for this. There were some coughing, wheezing, and questionable pneumonia. She is just on Rocephin. Sounds like still having a little bit of a headache, but overall p.o. intake is improving. Still coughing and feeling somewhat short of breath. Zithromax was added for some crackles and wheezes. She was given nebulizers q.i.d. On exam, she did still have some crackles and wheezes on the right side. Abdomen is benign. Currently, afebrile and vital signs are stable. So we will continue the same antibiotics management. Continue Zofran as needed and fluids. We are going to watch her for little bit of volume overload as she is at high risk for that. Echo was done to check on ejection fraction but it looks like it is estimated to be pretty much normal. No reason to think systolic heart failure. Job ID: [id number]
--- NOTE | 2018-09-06 12:28 | PRG ---
DATE OF SERVICE: 09/06/2018 Ms. Keith is a 63-year-old lady admitted with possible pyelo. Clinically, she is improving, although still complaining about some right flank pain. Her renal ultrasound done this morning is normal. She has a normal white count, hemoglobin 9.3, and hematocrit 32.0. Chemistries; sodium is 141, potassium 3.7, chloride 101, bicarb 36, BUN 10, creatinine 0.46. We will continue on medical therapy for her UTI. Job ID: [id number]
[2018-09-06] MEDS: Acetaminophen 325 MG TAB PO PRN (18:21)
[2018-09-06] MEDS: Melatonin 3 MG TAB PO PRN (22:19)
[2018-09-07] MEDS ORDERED: diphenhydrAMINE 12.5 MG/5 ML UDCUP PO SCH ×2 (01:45→22:30)
[2018-09-07] MEDS: Acetaminophen 325 MG TAB PO PRN ×2 (01:48→22:03)
[2018-09-07] MEDS: Mometasone/Formoterol 120 PUFF INHALER INH SCH ×2 (06:43→18:24)
[2018-09-07] MEDS: Fioricet 325/50/40 mg Tablet PO PRN (07:19)
--- NOTE | 2018-09-07 07:46 | PDOC.FM ---
- Subjective Subjective: Feeling well this morning. Periorbital edema has resolved. Instructed her to avoid DAHIANA-I as this may have been the cause. Reports shortness of breath and cough. Continues to have right CVA tenderness. Has O2 at home, she had been using it prior to CPAP. - Objective MAR Reviewed: Yes Vital Signs & Weight: Vital Signs (12 hours) Temp Pulse Resp BP Pulse Ox 09/07/18 07:19 97.6 F 67 19 104/64 94 L 09/07/18 06:43 68 16 96 09/07/18 06:39 68 14 96 09/07/18 05:24 97.6 F 63 16 112/62 93 L 09/07/18 01:43 65 16 09/07/18 00:35 98.3 F 63 16 100/56 L 96 09/06/18 22:30 62 20 95 09/06/18 20:00 94 L 09/06/18 19:50 98.3 F 75 125/80 16 L Weight Admit Weight 105.188 kg Weight 105.188 kg I&O: 09/06/18 09/07/18 09/08/18 06:59 06:59 06:59 Intake Total 2220 1720 Balance 2220 1720 Result Diagrams: 09/04/18 07:53 09/04/18 07:53 Phys Exam - Physical Examination Constitutional: NAD HEENT: moist MMs Neck: supple Respiratory: no wheezing, clear to auscultation bilateral Cardiovascular: RRR, no significant murmur Gastrointestinal: soft, non-tender, positive bowel sounds Musculoskeletal: no edema Neurological: moves all 4 limbs Psychiatric: normal affect, A&O x 3 Skin: cap refill <2 seconds Dx/Plan (1) Pyelonephritis Code(s): N12 - TUBULO-INTERSTITIAL NEPHRITIS, NOT SPCF ACUTE OR CHRONIC Status: Acute (2) Asthma Code(s): J45.909 - UNSPECIFIED ASTHMA, UNCOMPLICATED Status: Chronic (3) HTN (hypertension) Code(s): I10 - ESSENTIAL (PRIMARY) HYPERTENSION Status: Chronic Qualifiers: Hypertension type: essential hypertension Qualified Code(s): I10 - Essential (primary) hypertension (4) Anxiety Code(s): F41.9 - ANXIETY DISORDER, UNSPECIFIED Status: Chronic (5) GERD (gastroesophageal reflux disease) Code(s): K21.9 - GASTRO-ESOPHAGEAL REFLUX DISEASE WITHOUT ESOPHAGITIS Status: Chronic (6) Migraine Code(s): G43.909 - MIGRAINE, UNSP, NOT INTRACTABLE, WITHOUT STATUS MIGRAINOSUS Status: Chronic Qualifiers: (7) MARGARITO (obstructive sleep apnea) Code(s): G47.33 - OBSTRUCTIVE SLEEP APNEA (ADULT) (PEDIATRIC) Status: Chronic (8) Paroxysmal atrial fibrillation Code(s): I48.0 - PAROXYSMAL ATRIAL FIBRILLATION Status: Chronic - Plan Plan: 63yo female admitted for Pyelonephritis and Acute hypoxic resp failure Pyelonephritis - UA: + LE, 21-50 WBCs. Initial CVA tenderness. - Urine & Blood Cxs NGTD - Continue Levaquin - Zofran PRN for nausea Acute hypoxic respiratory failure - Likely 2/2 CAP - Continue Levaquin - Failed O2 trial - CM consulted for home O2 Periorbital edema, resolved - Repeat UA nml. Renal US nml - Appears to be dependent - Switched DAHIANA-I to losartan Constipation - Miralax PRN - Added Colace BID CXR with possible volume overload - BNP 302 - Echo: moderate dilation RA. EF normal but limited study. HTN - Continue home meds - Continue losartan GERD - Continue home meds Paroxysmal Afib on AC - NSR - Continue home Eliquis MARGARITO - CPAP at night Code Status: DNR DVT ppx: Eliquis PCP: KHALIL (P[facility]vino)
[2018-09-07] MEDS: Losartan 25 MG TAB PO SCH ×2 (08:40→12:24)
[2018-09-07] MEDS: Polyethylene Glycol 3350 17 GM Packet PO SCH (08:40)
[2018-09-07] MEDS: Apixaban 5 MG TAB PO SCH ×2 (08:42→20:10)
[2018-09-07] MEDS: Metoprolol Tartrate 25 MG TAB PO SCH ×3 (08:42→20:11)
[2018-09-07] MEDS ORDERED: Benzonatate 100 MG CAP PO PRN (09:22)
[2018-09-07 10:29] LABS: Actual Bicarbonate (HCO3a) 33.6 mEq/L (22-28); Base Excess (BEa) 7.9 mEq/L (-2.0 to +3.0); CO2 Tension 52.6 mmHg (35.0-45.0); Calcium, Ionized 1.21 mmol/L (1.12-1.30); Carboxyhemoglobin (COHb) 1.2 gm% (0.0-3.0); Hemoglobin (Hb) 10.9 g/dL (12.0-16.0); O2 Tension (PaO2) 77.8 mmHg (> 80.0); pH, Arterial 7.42 (7.35-7.45)
[2018-09-07 10:36] LABS: Puncture Site LRA
--- NOTE | 2018-09-07 12:49 | PRG ---
DATE OF SERVICE: 09/07/2018 SUBJECTIVE: Ms. Keith is sitting quietly in her chair. Ms. Keith has an at least 10 year history of asthma and several year history of obstructive sleep apnea. It would be helpful to obtain a room air ABG to determine if she needs to be on home oxygen for a long period of time. An ABG on 3 L was obtained demonstrating a pH 7.42, pCO2 of 52.6, pO2 of 77.8. I would suggest repeating this on room air. If her pO2 is less than 60, she will need 24 hour O2 forever. Job ID: [id number]
[2018-09-07 13:25] LABS: Actual Bicarbonate (HCO3a) 35.9 mEq/L (22-28); Base Excess (BEa) 9.7 mEq/L (-2.0 to +3.0); CO2 Tension 57.6 mmHg (35.0-45.0); Calcium, Ionized 1.23 mmol/L (1.12-1.30); Carboxyhemoglobin (COHb) 1.1 gm% (0.0-3.0); Hemoglobin (Hb) 11.2 g/dL (12.0-16.0); Potassium - ABG Lab 4.18 mmol/L (3.70-5.30); pH, Arterial 7.41 (7.35-7.45)
[2018-09-07 13:27] LABS: O2 Tension (PaO2) 49.9 mmHg (> 80.0); Puncture Site LRA
[2018-09-07] MEDS: Docusate 100 MG CAP PO SCH (20:10)
--- NOTE | 2018-09-08 06:38 | PDOC.FM ---
- Subjective Subjective: Reports feeling much better this morning. Concerned about why her headaches may have started but reports being under a lot of stress recently in addition to acute illness. She would like to restart ppx medication. Her home O2 is going to be inspected today. Voiding and stooling. No other concerns. - Objective MAR Reviewed: Yes Vital Signs & Weight: Vital Signs (12 hours) Temp Pulse Resp BP Pulse Ox 09/08/18 03:00 98.4 F 69 16 127/70 95 09/08/18 01:56 63 16 95 09/07/18 21:59 71 18 97 09/07/18 19:35 95 Weight Admit Weight 105.188 kg Weight 105.188 kg I&O: 09/06/18 09/07/18 09/08/18 06:59 06:59 06:59 Intake Total 2220 1720 1200 Balance 2220 1720 1200 Result Diagrams: 09/04/18 07:53 09/04/18 07:53 Phys Exam - Physical Examination Constitutional: NAD HEENT: moist MMs Neck: supple Respiratory: no wheezing, clear to auscultation bilateral Cardiovascular: RRR, no significant murmur Gastrointestinal: soft, non-tender, positive bowel sounds Musculoskeletal: no edema right CVA tenderness Neurological: moves all 4 limbs Psychiatric: normal affect, A&O x 3 Skin: normal turgor Dx/Plan (1) Pyelonephritis Code(s): N12 - TUBULO-INTERSTITIAL NEPHRITIS, NOT SPCF ACUTE OR CHRONIC Status: Acute (2) Asthma Code(s): J45.909 - UNSPECIFIED ASTHMA, UNCOMPLICATED Status: Chronic (3) HTN (hypertension) Code(s): I10 - ESSENTIAL (PRIMARY) HYPERTENSION Status: Chronic Qualifiers: Hypertension type: essential hypertension Qualified Code(s): I10 - Essential (primary) hypertension (4) Anxiety Code(s): F41.9 - ANXIETY DISORDER, UNSPECIFIED Status: Chronic (5) GERD (gastroesophageal reflux disease) Code(s): K21.9 - GASTRO-ESOPHAGEAL REFLUX DISEASE WITHOUT ESOPHAGITIS Status: Chronic (6) Migraine Code(s): G43.909 - MIGRAINE, UNSP, NOT INTRACTABLE, WITHOUT STATUS MIGRAINOSUS Status: Chronic Qualifiers: (7) MARGARITO (obstructive sleep apnea) Code(s): G47.33 - OBSTRUCTIVE SLEEP APNEA (ADULT) (PEDIATRIC) Status: Chronic (8) Paroxysmal atrial fibrillation Code(s): I48.0 - PAROXYSMAL ATRIAL FIBRILLATION Status: Chronic - Plan Plan: 63yo female admitted for Pyelonephritis and Acute hypoxic resp failure Pyelonephritis - UA: + LE, 21-50 WBCs. Initial CVA tenderness. - Urine & Blood Cxs NGTD - Zofran PRN for nausea - Discontinue Levaquin. Received 7 days antibiotics Acute hypoxic respiratory failure - initially 2/2 likely CAP. Continues to have acute hypoxic resp failure 2/2 long standing untreated MARGARITO and asthma - Discontinue Levaquin. Received 7 days antibiotics - Pt requires continuous O2 at home - RA ABG 7.41/57.6/49.9 - Pt has home O2 but has not used for >2yrs. Medical supply company to [employer] today prior to discharge Periorbital edema, resolved - Continue losartan in place of DAHIANA-I Migraines - Benadryl & Reglan PRN - Previously on ppx and followed with Neurology. Stopped meds due to well control - F/u outpt and consider restarting ppx. She does not remember which medication she was on. Constipation - Miralax PRN, Colace BID CXR with possible volume overload - BNP 302 - Echo: moderate dilation RA. EF normal but limited study. HTN - Continue home meds - Continue losartan GERD - Continue home meds Paroxysmal Afib on AC - NSR - Continue home Eliquis MARGARITO - CPAP at night Code Status: DNR DVT ppx: Eliquis PCP: REMI Agustin) Dispo: Likely today of Home O2 is able to evaluated
[2018-09-08] MEDS: Mometasone/Formoterol 120 PUFF INHALER INH SCH (06:43)
[2018-09-08] MEDS: Polyethylene Glycol 3350 17 GM Packet PO SCH (08:33)
[2018-09-08] MEDS: Metoprolol Tartrate 25 MG TAB PO SCH (08:34)
[2018-09-08] MEDS: Losartan 25 MG TAB PO SCH (08:34)
[2018-09-08] MEDS: Apixaban 5 MG TAB PO SCH (08:34)
[2018-09-08] MEDS: Docusate 100 MG CAP PO SCH (08:34)
--- NOTE | 2018-09-08 12:01 | PRG ---
DATE OF SERVICE: 09/08/2018 SUBJECTIVE: Ms. Keith is sitting in her chair, in no distress. She is not particularly short of breath. We repeated her blood gas yesterday on room air with some interesting findings. Her pH was 7.41. Her pCO2 was 57.6. Her pO2 was 49.9. This indicates severe hypoxemia necessitating lifelong O2 for 24 hours per day. We explained this carefully to her. We are waiting to make sure her oxygen equipment in home is ready for use and we will discharge her thereafter. Job ID: [id number]
[2018-09-08 13:57] VITALS: TEMP 98.2
[2018-09-08 16:49] VITALS: BP 145/88
[2018-09-08] MEDS ORDERED: Topiramate 25 MG TAB PO SCH (21:00)
--- NOTE | 2018-09-08 23:16 | DIS ---
DATE OF ADMISSION: 09/04/2018 DATE OF DISCHARGE: 09/08/2018 RESIDENT: Klaudia Frey MD, PGY-1. ADMITTING ATTENDING: Brenda Mancilla MD DISCHARGE ATTENDING: Zack Mosher MD CONSULTS: None. PROCEDURES: 1. Chest x-ray, findings of mild congestive heart failure and volume overload. 2. Echocardiogram, technically limited study. Ejection fraction 60% to 65%. Cannot assess any valvular structures with accuracy. She reports acoustic windows. Mild mitral regurg. Moderately dilated left atrium. 3. Unremarkable renal ultrasound. PRIMARY DIAGNOSES: 1. Pyelonephritis. 2. Acute on chronic hypoxic respiratory failure. SECONDARY DIAGNOSES: 1. Periorbital edema, resolved. 2. Migraines. 3. Constipation. 4. Chest x-ray with possible volume overload. 5. Hypertension. 6. Gastroesophageal reflux disease. 7. Paroxysmal atrial fibrillation, on anticoagulation. 8. Obstructive sleep apnea. DISCHARGE MEDICATIONS: 1. Eliquis 5 mg b.i.d. 2. Tessalon Perles 100 mg q.4 hours p.r.n. 3. Colace 100 mg b.i.d. p.r.n. 4. Advair 2 inhalations b.i.d. 5. Dulera 2 inhalations b.i.d. 6. Losartan 50 mg daily. 7. Melatonin 3 mg at bedtime. 8. Metoprolol tartrate 12.5 mg b.i.d. 9. Protonix 40 mg daily. HISTORY OF PRESENT ILLNESS/HOSPITAL COURSE: Ms. Keith is a 63-year-old female, who presented to the ED 2 days prior to admission and diagnosed with pyelonephritis and Keflex t.i.d. She had taken only 2 days of pills with only taking one dose per day when the recommendation was 3 doses per day. She had right flank pain and headache. She was given azithromycin, Rocephin, DuoNeb, and 1 L normal saline. Labs at admission notable for BNP 302.5. Troponin negative x3. Procalcitonin 0.04. UA is consistent with infection. Vital signs were stable and patient was saturating 94% on 3 L nasal cannula. She is not on chronic O2 at home. Also, she does have a history of using oxygen at night while she was trying to get approved for CPAP for her obstructive sleep apnea. Therefore, she does have oxygen concentrator and mobile equipment at home but has not been used greater than 2 years. She initially received Rocephin for pyelonephritis and azithromycin for acute hypoxic respiratory failure with concern for pneumonia. However, she was transferred over to [facility] and received full treatment prior to discharge. She did have migraines throughout the course of stay that were controlled with Benadryl and Reglan, but she was needing it basically every time it was due to control the migraine. Upon further questioning, she has a history of migraine that she saw Dr. Herrmann, Neurologist. He had her on prophylactic medication and was taken off due to good control of migraines. Although she had on ABG, concerns for hypoxia and has been under a lot of social stressors, and it could be the cause of her return of migraines. We started her on Topamax for prophylaxis. We wanted to avoid metoprolol due to her asthma and respiratory distress. This can be followed up outpatient. She did develop some periorbital edema that was impressive on physical exam. We decided to discontinue her DAHIANA inhibitor and start her on losartan as it could be angioedema secondary to enalapril. It did resolve within 24 hours. I spoke in detail to the patient about discontinuing the enalapril after discharge on her prescription for losartan. She did have some problems with constipation. She was prescribed MiraLAX and Colace that helps with this. I also provided a prescription for this outpatient. In regard to her hypertension, GERD and paroxysmal atrial fibrillation, she was continued on home medications with the exception of the enalapril being swapped with losartan. She does have obstructive sleep apnea, was diagnosed about a year ago CPAP at night. She always wears it at home. She was not able to obtain a CPAP for first 3 nights of hospitalization, but had her sister bring in her CPAP from home and has been wearing it. Prior to discharge, she got an ABG on room air that showed pH 7.41, pCO2 of 57.6, PO2 of 49.9. For this reason, I recommend continuous oxygen at home. Discussed with her humidified oxygen to reduce nasal dryness. DISPOSITION: Stable. DISCHARGE INSTRUCTIONS: 1. Location: Home. 2. Diet: Regular. 3. Activity: No restrictions. 4. Followup: Follow up with Dr. Quevedo within 7 days of discharge. Job ID: [id number]
== END 2018-09-08 16:34 | disposition home or self-care (01) | DRG 193 ==
LOC: ERS 02:19 → T4-B 03:57 → OBSVTOIN 09-04 21:39
PROVIDERS: ADMIT Family Medicine; ATTEND Family Medicine
DX: J18.9 Pneumonia, unspecified organism (principal); J96.21 Acute and chronic respiratory failure with hypoxia; N12 Tubulo-interstitial nephritis, not specified as acute or chronic; Z66 Do not resuscitate; Z90.710 Acquired absence of both cervix and uterus; Z88.2 Allergy status to sulfonamides; Z79.899 Other long term (current) drug therapy; J45.909 Unspecified asthma, uncomplicated; G47.33 Obstructive sleep apnea (adult) (pediatric); H05.229 Edema of unspecified orbit; G43.909 Migraine, unspecified, not intractable, without status migrainosus; K59.00 Constipation, unspecified; K21.9 Gastro-esophageal reflux disease without esophagitis; I48.0 Paroxysmal atrial fibrillation; Z79.01 Long term (current) use of anticoagulants; F41.9 Anxiety disorder, unspecified; I10 Essential (primary) hypertension; Z79.51 Long term (current) use of inhaled steroids
CPT/HCPCS: 36415; 71045; 74177; 76770; 80048; 80053; 81001; 81003; 81015; 82805; 83605; 83690; 83880; 84145; 84484; 85025; 87040; 87086; 87804; 93005; 93306; 94640; 94760; 96361; 96365; 96374; 96375; J0456; J0696; J1885; J2405; J7050; J7620; Q0162; Q0163; Q9966

== ENCOUNTER 2018-11-25 21:37 | Emergency (ER) | payer MEDICARE, OTHER ==
[2018-11-25] MEDS ORDERED: Ketorolac Tromethamine 60 MG/2 ML VIAL ONE (22:14)
--- NOTE | 2018-11-25 22:14 | CT ---
CT head without contrast: Multiple axial tomograms obtained through the head without IV enhancement. INDICATIONS: Fall with injury COMPARISON: None FINDINGS: Ventricles have normal size and position. No evidence of intracranial mass, hemorrhage, edema, or infarct. Visualized sinuses and mastoids appear clear. Bony calvarium appears unremarkable. IMPRESSION: No acute finding
--- NOTE | 2018-11-25 22:16 | CT ---
CT cervical spine without contrast: Multiple axial tones obtained through cervical spine with multiplanar reconstruction. INDICATIONS: trauma with cervical spine injury COMPARISON: none FINDINGS: Cervical vertebra maintain normal height and alignment.. Disc spaces are normal. Posterior elements are normally aligned. No evidence of fracture. IMPRESSION: No acute finding
--- NOTE | 2018-11-25 22:24 | CT ---
CT FACIAL BONES: 11/25/18 Multiple axial tomograms obtained through the facial bones with multiplanar reconstruction. HISTORY: Fall with injury to face. Nasal bones appear intact. Orbits appear intact. The paranasal sinuses are well aerated. The maxilla appears intact. Zygoma are intact. Mandible appea rs intact. IMPRESSION: No evidence of facial bone fracture. POS: [facility]
--- NOTE | 2018-11-25 22:41 | RAD ---
LEFT KNEE: 11/25/18 Four views. HISTORY: Fall. Joint spaces appear normally maintained. Mild degenerative changes are noted. No evidence of joint ef fusion. No evidence of fracture. IMPRESSION: No acute abnormality. POS: [facility]
== END 2018-11-25 22:46 | disposition home or self-care (01) ==
LOC: ERS 21:37
DX: S00.531A Contusion of lip, initial encounter (principal); S00.83XA Contusion of other part of head, initial encounter; S80.02XA Contusion of left knee, initial encounter; F41.9 Anxiety disorder, unspecified; Z79.899 Other long term (current) drug therapy; W18.30XA Fall on same level, unspecified, initial encounter
CPT/HCPCS: 70450; 70486; 72125; 96372; J1885

== ENCOUNTER 2019-03-17 13:46 | Observation (INO) | payer MEDICARE, OTHER ==
--- NOTE | 2019-03-17 15:00 | PDOC.FPRHP ---
- History of Present Illness Chief Complaint: Chest Pain & SOB History of Present Illness: Pt is a 64 yo F with history of Anemia, HTN, OA, Migraine, Insomnia, MARGARITO, GERD and depression who presents with chest pain and SOB. She said the chest pain started 2 weeks ago and has gradually worsened. The pain is intermittent on her left chest it is stabbing in nature and radiates up to the left shoulder. At its worst it is a 9/10, but currently it is a 4/10. She has taken no OTC medications for the pain. She fell about 1 month ago at a store, due to being off balance and having an elevated blood pressure. She ended up falling on her left side, hitting her knee , chest, and face. She said the pain in her face improved, but she still has the left chest pain. She has been short of breath starting around the same time. One month ago, she was able to walk 2 blocks without becoming SOB, but now she can barely make it a half a block before becoming short of breath. She says she uses 1 pillow when sleeping at night, but she does experience PND and orthopnea. She has a CPAP at home, but is not using it due to having home O2 and using it at 3L at night instead. - Allergies/Adverse Reactions Allergies Allergy/AdvReac Type Severity Reaction Status Date / Time Sulfa (Sulfonamide Allergy facial Verified 03/17/19 15:03 Antibiotics) swelling - Home Medications Medication Instructions Recorded Confirmed Type Pantoprazole [Protonix] 40 mg PO DAILY 03/19/17 03/17/19 History Metoprolol Tartrate [Lopressor] 12.5 mg PO BID #60 tab 05/25/17 03/17/19 Rx Apixaban [Eliquis] 5 mg PO BID 09/02/18 03/17/19 History Topiramate [Topamax] 25 mg PO HS #30 tab 09/08/18 03/17/19 Rx Albuterol Sulfate [Proair HFA] 1 puff INH Q4HR PRN 03/17/19 03/17/19 History Cefadroxil 1 tab PO BID 03/17/19 03/17/19 History Citalopram [CeleXA] 20 mg PO DAILY 03/17/19 03/17/19 History Ferrous Sulfate 325 mg PO DAILY 03/17/19 03/17/19 History Fluticasone/Salmeterol [Advair HFA 2 inh IH BID 03/17/19 03/17/19 History 115/21 Inhaler] Losartan [Cozaar] 25 mg PO DAILY 03/17/19 03/17/19 History - History PMHx: Asthma, Aneamia, OA, Migraine, Afib, Insomnia, MARGARITO, HTN, and Depressioin PSHx: C section x2, b/l Oophorectomy, Hysterectomy, Cholecystectomy FHx: Sister- CAD (pacemaker), Mom- HTN, Dad & Sisters- DM Social: Smoked several years ago in her youth half a pack a day for 2 years. No drinking or recreational drugs. - Review of Systems General: reports: fatigue. denies: fever/chills Eyes: denies: vision changes ENT: denies: nasal congestion, rhinorrhea Respiratory: reports: shortness of breath. denies: cough, congestion Cardiovascular: reports: chest pain, paroxysmal nocturnal dyspnea, orthopnea. denies: edema Gastrointestinal: reports: nausea. denies: vomiting, diarrhea, constipation, abdominal pain Genitourinary: reports: polyuria. denies: dysuria Skin: denies: rashes, lesions Musculoskeletal: denies: pain, tenderness Neurological: denies: numbness, weakness - Vital signs BP: 130/85 HR: 61 RR: 16 Tmax: 98 Pox: 92% on RA Wt: 101.605 kg - Physical Exam Constitutional: NAD, awake, alert and oriented, well developed HEENT: normocephalic and atraumatic, PERRLA, EOMI, normal nasal mucosa, MMM, oropharynx clear Neck: supple, trachea midline, no LAD Chest: no-tender to palpation Heart: RRR, normal S1/S2, no murmurs/rubs/gallops Lungs: CTAB Abdomen: soft, non-tender, bowel sounds present Musculoskeletal: normal structure, normal tone, ROM grossly normal -Musculoskeletal: CVA tenderness on R flank Neurological: CN II-XII intact Skin: no rash/lesions Heme/Lymphatic: no unusual bruising or bleeding Psychiatric: normal mood and affect FMR H&P: Results - Labs Result Diagrams: 03/18/19 04:38 03/18/19 04:38 FMR H&P: A/P - Problem List (1) CHF (congestive heart failure) Current Visit: Yes Status: Acute Code(s): I50.9 - HEART FAILURE, UNSPECIFIED (2) Atypical chest pain Current Visit: No Status: Acute Code(s): R07.89 - OTHER CHEST PAIN (3) Paroxysmal atrial fibrillation Current Visit: No Status: Chronic Code(s): I48.0 - PAROXYSMAL ATRIAL FIBRILLATION (4) GERD (gastroesophageal reflux disease) Current Visit: No Status: Chronic Code(s): K21.9 - GASTRO-ESOPHAGEAL REFLUX DISEASE WITHOUT ESOPHAGITIS (5) MARGARITO (obstructive sleep apnea) Current Visit: No Status: Chronic Code(s): G47.33 - OBSTRUCTIVE SLEEP APNEA (ADULT) (PEDIATRIC) (6) Hypertensive emergency Current Visit: No Status: Resolved Code(s): I16.1 - HYPERTENSIVE EMERGENCY - Plan Pt is a 64 yo F with history of Anemia, HTN, OA, Migraine, Insomnia, MARGARITO, GERD and depression who presents with chest pain and SOB. 1. ACS vs. CHF Chest pain & SOB for 2 wks * Orthopnea & PND * Direct admit to tele obs for w/u * EKG * Trop * CMP & CBC * CXR * ECHO (09/14): EF 60-65 * Stress (08/17): Anterior & Inferior Ischemia * Strict I & O, Weights * Q4H Vitals * BNP * Discussed with Dr. Pisano, appreciate his recommendations. Will get EKG and troponins and monitor. He said she had a cath last December that was normal 2. Migraine Frontal headache * Continue home Topamax * Tylenol 650 prn Q6H 3. Afib, Paroxysmal * Will monitor on Tele * Continue Eliquis and Metoprolol 4. MARGARITO * Ordered CPAP 5. GERD * Continue Protonix 6. Asthma * Continue Proair & Advair 7. Depression * Continue Citalopram Diet: HHLSo Activity: Ad Maude Lines: Peripheral DVT PPx: Eliquis GI Prophylaxis: Protonix Code Status: DNR-DNI Dispo: Obs, will work her up for ACS and get BNP to r/o CHF. LOS < 2 midnights. FMR H&P: Upper Level - Pertinent history 64yo F presents as direct admit from clinic for CP. Reports substernal and L sided CP that is sharp, 4-9/10. No transforming factors. Radiation to L shoulder. Related SOB. No diaphoresis. SOB is worsened with exertion and with laying flat. Of note pt reports falling one month ago and that she hit her L ribs. They have hurt on and off ever since her fall. ROS: polyuria. other pertinent positives and negatives per interns note PMH: MARGARITO, HTN, Afib - Pertinent findings GEN: in no apparent distress CARD: RRR, no murmur CHEST: reproducible CP with palpation on sternum and L chest of same character of chief complaint PULM: CTAB, no wheezing - Plan Date/Time: 03/17/19 5928 I, aJvier Richards PGY 2, have evaluated this patient and agree with findings/plan as outlined by internet researcher resident. Pertinent changes/additions are listed here. Chest Pain A- ACS vs. MSK most likely. Per review of history with cardiology she has had a cath in the past. ECHO done in August 2018 shows EF 60-65%. P- CXR -EKG -serial trops -CBC/CMP -BNP -if workup all negative, will consider DC tomorrow. Asthma, Anxiety, OA, Migraine, Afib, Insomnia, HTN -stable, continue home meds/CPAP CODE: DNAR Addendum - Attending - Attending Attestation Date/Time: 03/18/19 1121 I personally evaluated the patient and discussed the management with Dr. Gasca and Bijan on 03/17. I agree with the History, Examination, Assessment and Plan documented above with any addition or exceptions noted below.
[2019-03-17 15:16] LABS: Mean Corpuscular HGB CONC 32.6 g/dL (32.0-36.0); Mean Corpuscular Hemoglobin 29.8 pg (27.0-31.0); Mean Corpuscular Volume 91.3 fL (78.0-98.0); Mean Platelet Volume 7.6 fL (7.4-10.4); Platelet Count 129 thou/uL (130-400); RBC Distribution Width 16.6 % (11.5-14.5); Red Blood Cell (RBC) Count 4.03 mill/uL (4.20-5.40); White Blood Cell (WBC) Count 2.5 thou/uL (4.8-10.8)
--- NOTE | 2019-03-17 15:31 | RAD ---
XR Chest 1 View Portable History: Chest pain Comparison: Radiograph September 02, 2018 Findings: Heart size is enlarged. Mild pulmonary venous congestion. No pneumothorax. No effusion. Impression: Primarily and mild pulmonary venous congestion.
[2019-03-17 15:38] LABS: ALT (SGPT) 27 U/L (8-55); AST (SGOT) 29 U/L (5-34); Albumin 3.9 g/dL (3.4-4.8); Alkaline Phosphatase 63 U/L (40-150); Anion Gap 7 mmol/L (10-20); BUN (Urea Nitrogen) 12 mg/dL (9.8-20.1); Bilirubin, Total 0.5 mg/dL (0.2-1.2); Calc. Creatinine Clearance 166 mL/min (70-130); Calcium 9.1 mg/dL (7.8-10.44); Carbon Dioxide 30 mmol/L (23-31); Chloride 105 mmol/L (98-107); Estimated GFR-MDRD Greater than 90; Globulin 2.9 g/dL (2.4-3.5); Glucose 90 mg/dL (80-115); Potassium 3.7 mmol/L (3.5-5.1); Protein, Total 6.8 g/dL (6.0-8.3); Sodium 138 mmol/L (136-145)
[2019-03-17 15:43] LABS: Anisocytosis SLIGHT = 6-15 cells (100X) (0-5/hpf); Band 5 % (5-11); Differential Comment Blast-Like Cell(s); Eosinophils 1 % (0-10); Lymphocytes 55 % (21-51); MDiff Complete? YES; Monocytes 2 % (0-10); Neutrophil 34 % (42-75); Nucleated RBC 1 % (0); Platelet Morphology Comment Appears Decreased; Reactive Lymphocytes 1 % (0-10); Reflex for Review?? YES
[2019-03-17] MEDS: Acetaminophen 325 MG TAB PO PRN (15:43)
[2019-03-17 16:03] LABS: Troponin I Less than 0.010 ng/mL (< 0.028)
[2019-03-17] MEDS ORDERED: PROVENTIL INHALER 6.7 G (200 INHALATIONS) INH PRN (18:12)
[2019-03-17] MEDS ORDERED: PROVENTIL INHALER 6.7 G (200 INHALATIONS) INH SCH (18:30)
[2019-03-17] MEDS: Mometasone/Formoterol 120 PUFF INHALER INH SCH (18:40)
[2019-03-17 19:07] LABS: Bacteria/HPF None Seen HPF (None Seen); Bilirubin Negative (Negative); Blood, Urine Negative (Negative); Clarity Clear (Clear); Glucose, Urine (Dipstick) Normal (Negative); Leukocyte Negative Leu/uL (Negative); Nitrite Negative (Negative); Protein, Urine (Dipstick) Negative (Neg-Trace); RBC/HPF 0-3 HPF (0-3); Squamous Epithelial 0-3 HPF (0-3); Urobilinogen Normal mg/dL (Less than 2); WBC/HPF 0-3 HPF (0-3)
[2019-03-17] MEDS: Topiramate 25 MG TAB PO SCH (21:01)
[2019-03-17] MEDS: Famotidine 20 MG TAB PO SCH (21:01)
[2019-03-17] MEDS: Metoprolol Tartrate 25 MG TAB PO SCH (21:01)
[2019-03-17] MEDS: Apixaban 5 MG TAB PO SCH (21:01)
[2019-03-18] MEDS: Acetaminophen 325 MG TAB PO PRN ×3 (03:02→19:29)
[2019-03-18] MEDS: Ondansetron ODT 4 MG TAB PO PRN ×2 (03:02→19:29)
[2019-03-18 04:53] LABS: Hemoglobin 11.3 g/dL (12.0-16.0); Platelet Count 118 thou/uL (130-400)
[2019-03-18 05:11] LABS: Anion Gap 8 mmol/L (10-20); BUN (Urea Nitrogen) 12 mg/dL (9.8-20.1); Calc. Creatinine Clearance 145 mL/min (70-130); Calcium 8.6 mg/dL (7.8-10.44); Carbon Dioxide 30 mmol/L (23-31); Chloride 105 mmol/L (98-107); Estimated GFR-MDRD Greater than 90; Glucose 106 mg/dL (80-115); Potassium 3.6 mmol/L (3.5-5.1); Sodium 139 mmol/L (136-145)
--- NOTE | 2019-03-18 05:59 | PDOC.FM ---
- Subjective Subjective: Pt says she is feeling better this morning. She is eating well and breathing better. She has some chest pain, but it is mainly at the costochondral junction. - Objective MAR Reviewed: Yes Vital Signs & Weight: Vital Signs (12 hours) Temp Pulse Resp BP BP Pulse Ox 03/18/19 03:02 52 L 18 134/82 92 L 03/17/19 18:52 98.1 F 55 L 16 115/51 L 93 L 03/17/19 18:48 54 L 106/55 L Weight Weight 101.605 kg I&O: 03/16/19 03/17/19 03/18/19 06:59 06:59 06:59 Intake Total 600 Output Total 200 Balance 400 Result Diagrams: 03/18/19 04:38 03/18/19 04:38 Phys Exam - Physical Examination Constitutional: NAD HEENT: PERRLA, moist MMs Neck: supple, full ROM Respiratory: clear to auscultation bilateral Cardiovascular: RRR, no significant murmur Gastrointestinal: soft, non-tender, positive bowel sounds Musculoskeletal: no edema, pulses present Neurological: moves all 4 limbs Psychiatric: normal affect, A&O x 3 Skin: normal turgor Dx/Plan (1) CHF (congestive heart failure) Code(s): I50.9 - HEART FAILURE, UNSPECIFIED Status: Acute (2) Atypical chest pain Code(s): R07.89 - OTHER CHEST PAIN Status: Acute (3) Paroxysmal atrial fibrillation Code(s): I48.0 - PAROXYSMAL ATRIAL FIBRILLATION Status: Chronic (4) GERD (gastroesophageal reflux disease) Code(s): K21.9 - GASTRO-ESOPHAGEAL REFLUX DISEASE WITHOUT ESOPHAGITIS Status: Chronic (5) MARGARITO (obstructive sleep apnea) Code(s): G47.33 - OBSTRUCTIVE SLEEP APNEA (ADULT) (PEDIATRIC) Status: Chronic - Plan Plan: Pt is a 64 yo F with history of Anemia, HTN, OA, Migraine, Insomnia, MARGARITO, GERD and depression who presents with chest pain and SOB. 1. ACS vs. CHF Chest pain & SOB for 2 wks * Orthopnea & PND * Direct admit to tele obs for w/u * EKG: Sinus jose with upsloping ST depression * Trop: Neg x3 * CMP & CBC wnl * CXR: Mild Pulm Venous congestion * ECHO (09/14): EF 60-65 * Stress (08/17): Anterior & Inferior Ischemia * Strict I & O, Weights * Q4H Vitals * BNP: 258, which is lower than previous admissions * Discussed with Dr. Pisano, appreciate his recommendations. Will get EKG and troponins and monitor. He said she had a cath last December that was normal 2. Migraine Frontal headache * Continue home Topamax * Tylenol 650 prn Q6H 3. Afib, Paroxysmal * Will monitor on Tele * Continue Eliquis and Metoprolol 4. MARGARITO * On 3L overnight and slept well. 5. GERD * Continue Protonix 6. Asthma * Continue Proair & Advair 7. Depression * Continue Citalopram Diet: HHLSo Activity: Ad Maude Lines: Peripheral DVT PPx: Eliquis GI Prophylaxis: Protonix Code Status: DNR-DNI Dispo: Obs, will d/c today. Addendum - Attending - Attending Attestation Date/Time: 03/18/19 [id number] I personally evaluated the patient and discussed the management with Dr. Gasca. I agree with the History, Examination, Assessment and Plan documented above with any addition or exceptions noted below. Patient with difficulty sleeping overnight but denies sob/cp/n/v/f/c to me this AM. She has mild crackles at the bases. Will give lasix and monitor. Send HIV/hep panel in light of leukopenia and thrombocytopenia. Hopeful d/c this PM.
[2019-03-18] MEDS: Mometasone/Formoterol 120 PUFF INHALER INH SCH ×2 (07:15→19:37)
[2019-03-18] MEDS: Metoprolol Tartrate 25 MG TAB PO SCH ×2 (09:00→20:08)
[2019-03-18] MEDS: Citalopram 20 MG TAB PO SCH (09:00)
[2019-03-18] MEDS: Ferrous Sulfate 325 MG TAB PO SCH (09:00)
[2019-03-18] MEDS: Losartan 25 MG TAB PO SCH (09:00)
[2019-03-18] MEDS: Famotidine 20 MG TAB PO SCH ×2 (09:00→20:08)
[2019-03-18] MEDS: Apixaban 5 MG TAB PO SCH ×2 (09:00→20:08)
[2019-03-18] MEDS ORDERED: Furosemide 20 MG/2 ML VIAL SLOW IVP SCH (10:00)
[2019-03-18 11:32] LABS: HBCM Index 0.06 S/CO (0-0.79); HBSAB Concentration 1.43 mIU/mL; HIV (1/2) Antibody/Antigen Non-Reactive (NonReactive); HIV 1/2 INDEX 0.11 S/CO (<1.00); Hep A IgM AB Non-Reactive (NonReactive); Hep A IgM S/CO 0.24 S/CO (0-0.79); Hep B Surf AB Non-Reactive (NonReactive); Hep B Surf Ag Non-Reactive S/CO (NonReactive); Hep C IgG Ab Non-Reactive (NonReactive); Hep C Index 0.05 S/CO (0-0.79); Hepatitis B Core IgM Abs Non-Reactive (NonReactive)
[2019-03-18 14:54] VITALS: BMI 47.9
[2019-03-18] MEDS: Topiramate 25 MG TAB PO SCH (20:08)
[2019-03-19] MEDS: Acetaminophen 325 MG TAB PO PRN (04:12)
[2019-03-19] MEDS: Ondansetron ODT 4 MG TAB PO PRN (04:13)
[2019-03-19 05:49] LABS: Hemoglobin 11.4 g/dL (12.0-16.0); Hypochromia SLIGHT = 6-15 cells (100X) (0-5/hpf); Lymphocytes 58 % (21-51); MDiff Complete? YES; Mean Corpuscular Hemoglobin 30.7 pg (27.0-31.0); Mean Platelet Volume 7.6 fL (7.4-10.4); Monocytes 2 % (0-10); Neutrophil 40 % (42-75); Platelet Count 138 thou/uL (130-400); Platelet Morphology Comment Appears Adequate; RBC Distribution Width 16.7 % (11.5-14.5); White Blood Cell (WBC) Count 2.3 thou/uL (4.8-10.8)
--- NOTE | 2019-03-19 06:33 | PDOC.FM ---
- Subjective Subjective: Pt denies any shortness of breath, CP, or leg swelling this morning. Is eager to return home. Denies any history of recent B sx including weight change, fevers, chills. Pt notes increased urination with lasix administration although it went unmeasured. - Objective Vital Signs & Weight: Vital Signs (12 hours) Temp Pulse Resp BP Pulse Ox 03/19/19 04:31 98.2 F 58 L 14 106/53 L 94 L 03/18/19 19:39 99 03/18/19 19:37 99 03/18/19 19:11 98.1 F 58 L 16 135/62 98 Weight Admit Weight 101.605 kg Weight 100.561 kg I&O: 03/17/19 03/18/19 03/19/19 06:59 06:59 06:59 Intake Total 600 960 Output Total 200 200 Balance 400 760 Result Diagrams: 03/19/19 05:16 03/18/19 04:38 Phys Exam - Physical Examination Constitutional: NAD HEENT: PERRLA, moist MMs Respiratory: no wheezing RLL crackles Cardiovascular: RRR, no significant murmur Gastrointestinal: soft, non-tender, no distention, positive bowel sounds Musculoskeletal: no edema, pulses present Neurological: non-focal, moves all 4 limbs Psychiatric: normal affect, A&O x 3 Skin: no rash Dx/Plan (1) CHF (congestive heart failure) Code(s): I50.9 - HEART FAILURE, UNSPECIFIED Status: Acute (2) Atypical chest pain Code(s): R07.89 - OTHER CHEST PAIN Status: Acute (3) Anxiety Code(s): F41.9 - ANXIETY DISORDER, UNSPECIFIED Status: Chronic (4) Asthma Code(s): J45.909 - UNSPECIFIED ASTHMA, UNCOMPLICATED Status: Chronic (5) GERD (gastroesophageal reflux disease) Code(s): K21.9 - GASTRO-ESOPHAGEAL REFLUX DISEASE WITHOUT ESOPHAGITIS Status: Chronic (6) HTN (hypertension) Code(s): I10 - ESSENTIAL (PRIMARY) HYPERTENSION Status: Chronic Qualifiers: Hypertension type: essential hypertension Qualified Code(s): I10 - Essential (primary) hypertension (7) Migraine Code(s): G43.909 - MIGRAINE, UNSP, NOT INTRACTABLE, WITHOUT STATUS MIGRAINOSUS Status: Chronic Qualifiers: (8) MARGARITO (obstructive sleep apnea) Code(s): G47.33 - OBSTRUCTIVE SLEEP APNEA (ADULT) (PEDIATRIC) Status: Chronic (9) Paroxysmal atrial fibrillation Code(s): I48.0 - PAROXYSMAL ATRIAL FIBRILLATION Status: Chronic - Plan Plan: ACS vs. CHF Chest pain & SOB for 2 wks * Orthopnea & PND * Direct admit to tele obs for w/u * EKG: Sinus jose with upsloping ST depression * Trop: Neg x3 * CMP & CBC wnl * CXR: Mild Pulm Venous congestion * ECHO (09/14): EF 60-65 * Stress (08/17): Anterior & Inferior Ischemia * Strict I & O, Weights * Q4H Vitals * BNP: 258, which is lower than previous admissions * 1 dose of lasix yesterday - 24hr urinary output ~400ml however pt had 2 unmeasured voids * Dr. Gasca discussed with Dr. Pisano. He said she had a cath last December that was normal Pancytopenia * WBC 2.3 today * Hgb 11.4, was normal at 12 upon admission * Platelet: thrombocytopenia resolved and plt lvl 138 today * Smear pending * Rec continuing workup on outpt basis Migraine Frontal headache * Continue home Topamax * Tylenol 650 prn Q6H Afib, Paroxysmal * Will monitor on Tele * Continue Eliquis and Metoprolol MARGARITO * On 3L overnight and slept well. GERD * Continue Protonix Asthma * Continue Proair & Advair Depression * Continue Citalopram Diet: HHLSo Activity: Ad Maude Lines: Peripheral DVT PPx: Eliquis GI Prophylaxis: Protonix Code Status: DNR-DNI Dispo: Obs, will d/c today with close f/u to workup cytopenias. Addendum - Attending - Attending Attestation Date/Time: 03/19/19 6844 I personally evaluated the patient and discussed the management with Dr. Berg. I agree with the History, Examination, Assessment and Plan documented above with any addition or exceptions noted below. Stable for d/c home and will need repeat CBC in 2-3 weeks to ensure resolution of pancytopenia (plts already normalized).
[2019-03-19] MEDS: Mometasone/Formoterol 120 PUFF INHALER INH SCH (06:57)
[2019-03-19] MEDS: Citalopram 20 MG TAB PO SCH (08:08)
[2019-03-19] MEDS: Famotidine 20 MG TAB PO SCH (08:08)
[2019-03-19] MEDS: Apixaban 5 MG TAB PO SCH (08:08)
[2019-03-19] MEDS: Losartan 25 MG TAB PO SCH (08:08)
[2019-03-19] MEDS: Metoprolol Tartrate 25 MG TAB PO SCH (08:08)
[2019-03-19] MEDS: Ferrous Sulfate 325 MG TAB PO SCH (08:08)
[2019-03-19 08:21] VITALS: BP 107/57; TEMP 98
--- NOTE | 2019-03-19 10:56 | DIS ---
DATE OF ADMISSION: 03/17/2019 DATE OF DISCHARGE: 03/19/2019 RESIDENT: Chau Berg DO ADMITTING ATTENDING: Wesley Johns MD DISCHARGE ATTENDING: Beverly Soto MD CONSULT: None. PROCEDURES: None. PRIMARY DIAGNOSES: 1. Atypical chest pain, likely secondary to costochondritis. 2. Congestive heart failure. 3. Paroxysmal atrial fibrillation. 4. Gastroesophageal reflux disease. SECONDARY DIAGNOSES: 1. Obstructive sleep apnea. 2. Migraine headache. 3. Asthma. 4. Depression. DISCHARGE MEDICATIONS: 1. Pantoprazole 40 mg daily. 2. Metoprolol tartrate 12.5 mg b.i.d. 3. Eliquis 5 mg b.i.d. 4. Topamax 25 mg at bedtime. 5. Celexa 20 mg daily. 6. Ferrous sulfate 25 mg daily. 7. Albuterol sulfate one puff q.4 hours p.r.n. 8. Fluticasone/salmeterol two inhalations b.i.d. 9. Cozaar 25 mg p.o. daily. DISCONTINUED MEDICATIONS 1. Cefadroxil 500 mg b.i.d. HISTORY OF PRESENT ILLNESS AND HOSPITAL COURSE: The patient is a 64-year-old female with a history of anemia, hypertension, MARGARITO, GERD, and depression, who presents with chest pain and shortness of breath. She stated that chest pain started two weeks ago and had gradually worsened. The pain is intermittent in her left chest and is stabbing in nature and radiates up to her left shoulder at its worst. It was rated at 9/10, upon admission was 4/10. The patient has utilized [id number] medications for the pain without relief. The patient fell about one month ago at a store on her left side, hit her knee, chest, and face. She stated that she was seen after this nerve pain in her face and had improved, but she still had a left- sided chest pain. The patient has been short of breath starting around the time of the fall. She was previously able to walk two blocks without becoming short of breath, but now can barely make it half a block before needing to take a break. She states she uses one pillow to sleep at night, but does experience some of orthopnea. She has a CPAP at home and utilizes supplemental oxygen while sleeping and as needed at home. Upon admission, the patient had an elevated BNP around 250, which is upon review of patient's history, consistent with her baseline. Troponins were trended and negative. EKG without significant findings. Chest x-ray showing some mild pulmonary congestion and enlarged heart. Review of records shows that the patient had an echo in August of this year with an EF of 60% to 65%. She also had a stress in July of this year showing anterior and inferior ischemia. Dr. Pisano was called, however, not consulted. He stated that the patient had a catheterization last December that was normal. The patient was admitted to telemetry for continued cardiac monitoring. Following day, she received 20 mg IV push of Lasix due to patient having crackles on bilateral bases. The patient stated that she diuresed effectively after receiving this dose. The patient's in and outs unfortunately were not consistently tracked; however, the patient noted good urinary output following diuretic administration. On day of discharge, the patient's lungs were improved with just mild crackles in the right lower base. No peripheral edema, orthopnea, shortness of breath, or chest pain was noted by the patient. During patient's workup, incidental findings of pancytopenia were noted with WBC of 2.5, hemoglobin of 11.3, and platelet count of 129. Hemoglobin and platelet levels both had instances where levels were within normal limits; however, WBCs remained low throughout our stay. Peripheral smear was ordered along with folate, B12, and iron studies; however, there were still pending upon discharge. The patient was informed of these findings and recommended to have close followup with her PCP to further evaluate the cause of these findings. The patient was educated on the likely cause of her chest pain being musculoskeletal in nature and was given return precautions, which she expressed understanding too. DISPOSITION: Stable. DISCHARGE INSTRUCTIONS: LOCATION: Home. DIET: Heart healthy. ACTIVITY: As tolerated. FOLLOWUP: PCP Dr. Quevedo at [facility] in 3 days. Job ID: [id number] [facility]
[2019-03-22 16:09] LABS: Folate,Hemolysate 370.9 ng/mL (Not Estab.); Hematocrit 37.1 % (34.0-46.6); RBC Folate Test Component 1000 ng/mL (>498)
== END 2019-03-19 10:37 | disposition home or self-care (01) ==
LOC: 2SW 13:51
PROVIDERS: ADMIT Emergency Medicine; ATTEND Emergency Medicine
DX: M94.0 Chondrocostal junction syndrome [Tietze] (principal); I11.0 Hypertensive heart disease with heart failure; I50.9 Heart failure, unspecified; I48.0 Paroxysmal atrial fibrillation; K21.9 Gastro-esophageal reflux disease without esophagitis; G43.909 Migraine, unspecified, not intractable, without status migrainosus; G47.33 Obstructive sleep apnea (adult) (pediatric); F41.9 Anxiety disorder, unspecified; F32.9 Major depressive disorder, single episode, unspecified; J45.909 Unspecified asthma, uncomplicated; M19.90 Unspecified osteoarthritis, unspecified site; G47.00 Insomnia, unspecified; Z79.01 Long term (current) use of anticoagulants; Z79.899 Other long term (current) drug therapy; Z88.2 Allergy status to sulfonamides; Z91.81 History of falling; Z66 Do not resuscitate
CPT/HCPCS: 36415; 71045; 80048; 80053; 80074; 81001; 82607; 82747; 83880; 84484; 85007; 85014; 85018; 85025; 85027; 85049; 85060; 86706; 87389; 93005; 93010; 96374; G0378; G0379; J1940; Q0162

== ENCOUNTER 2019-04-06 14:35 | Emergency (ER) | payer MEDICARE, OTHER ==
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
== END 2019-04-06 16:22 | disposition home or self-care (01) ==
LOC: ERS 14:35
DX: M54.5 Low back pain (principal); J44.9 Chronic obstructive pulmonary disease, unspecified; G43.909 Migraine, unspecified, not intractable, without status migrainosus; I10 Essential (primary) hypertension; F41.9 Anxiety disorder, unspecified; Z79.01 Long term (current) use of anticoagulants; Z79.899 Other long term (current) drug therapy; Z86.73 Personal history of transient ischemic attack (TIA), and cerebral infarction without residual deficits; V89.2XXA Person injured in unspecified motor-vehicle accident, traffic, initial encounter
CPT/HCPCS: 72100